=== PATIENT | female | born 1995 | race Caucasian/White ===

== ENCOUNTER 2021-09-15 09:57 | Emergency (ER) | payer MEDICARE, MEDICAID, SELFPAY ==
[2021-09-15 10:03] VITALS: BP 110/57; PULSE 57; RESP 20; TEMP 36.3; O2SAT 100; BMI 29.0
[2021-09-15 10:19] LABS: Hematocrit 37.7 % (37.0-47.0); Hemoglobin 11.6 g/dl (12.0-16.0); Mean Corpuscular HGB Conc 30.8 g/dl (31.0-35.0); Mean Corpuscular Hemoglobin 24.3 pg (27.0-33.0); Mean Platelet Volume 11.5 fL (9.4-12.3); Platelet Count 206 X10*3/uL (160-400); Red Blood Count 4.77 X10*6/uL (4.20-5.50); Red Cell Distribution Width 18.7 % (11.0-16.0)
[2021-09-15 10:28] LABS: Appearance Urine CLEAR; Color Urine YELLOW; Glucose Urine UA NEG (NEG); Leukocyte Esterase Urine 2+ (NEG); Nitrite Urine NEG (NEG); Specific Gravity - Urine 1.025 (1.005-1.025); UACC Culture Trigger YES; Urine Blood TRACE (NEG); Urine Ketones NEG (NEG); Urine Protein NEG (NEG-TRACE)
[2021-09-15 10:30] LABS: UPreg QC Valid YES; Urine Pregnancy NEGATIVE (NEGATIVE)
[2021-09-15 10:31] LABS: WBC ABN SCTR FOR CBC 1
[2021-09-15 10:36] LABS: Alanine Aminotransferase 9 U/L (0-31); Albumin Level 3.8 g/dL (3.5-5.0); Alkaline Phosphatase 67 U/L (39-117); Anion Gap 11 (12-20); Aspartate Amino Transferase 13 U/L (5-31); Bilirubin Total 0.4 mg/dL (0.0-1.0); Blood Urea Nitrogen 12 mg/dL (9-16); Calcium 9.2 mg/dL (8.4-10.2); Carbon Dioxide 26 mmol/L (22-29); Chloride 108 mmol/L (96-108); Creatinine Clr Calc Pharmacy 112.4; Estimated Glomerular Filt Rate > 60; Glucose Random 91 mg/dL (60-115); Lipase 29 U/L (8-78); Potassium 4.6 mmol/L (3.3-5.1); Sodium 140 mmol/L (135-145); Total Protein 6.3 g/dL (6.5-8.0)
--- NOTE | 2021-09-15 10:45 | ED_ITS ---
HPI - Abdominal Pain General Chief Complaint: Abdominal Pain Stated Complaint: abd pain Time Seen by Provider: 09/15/21 10:45 Source: patient Mode of arrival: ambulatory Limitations: no limitations History of Present Illness HPI narrative: 26 years old female came in for evaluation of upper abdominal pain/epigastric pain. Pain started many years ago, pain was described as intermittent comes and goes, mild 6/10 dull aching pain usually localized to the epigastric area with no radiation, no relieving factor, no aggravating factor, food do not change or affect the pain, sometimes the pain is associated with nausea and vomiting. Patient had a normal bowel movement this morning. Sexually active with 1 partner declined risk of STD, no vaginal discharge, no urinary frequency or dysuria. Past Surgical history significant for cholecystectomy, right oophorectomy for ovarian torsion and dermoid cyst, history of ectopic . Patient lost intentional weight loss over past year. Related Data Previous Rx's Medication Instructions Recorded omeprazole magnesium 20 mg 20 mg PO BID 10 Days #20 tab 09/15/21 tablet,delayed release (Prilosec OTC) Allergies Allergy/AdvReac Type Severity Reaction Status Date / Time No Known Allergies Allergy Unverified 04/08/20 19:31 [No Known Allergies*] Review of Systems Review of Systems All other systems are reviewed and are negative Constitutional: Reports as per HPI and Reports no additional constitutional complaints Eyes: Reports as per HPI and Reports no additional eye complaints Reports system reviewed and no additional complaints, except as documented Cardiovascular: Reports as per HPI and Reports no additional cardiovascular complaints Respiratory: Reports as per HPI and Reports no additional respiratory complaints Gastrointestinal: Reports as per HPI and Reports no additional gastrointestinal complaints Genitourinary: Reports no additional female genitourinary complaints Musculoskeletal: Reports no additional musculoskeletal complaints Skin/Breast: Reports system reviewed and no additional complaints, except as docu Psychiatric: Reports no additional psychiatric complaints Endocrine: Reports no additional endocrine complaints Hematologic/Lymphatic: Reports no additional hematologic/lymphatic complaints Allergic/Immunologic: Reports no additional allergic/immunologic complaints Reports system reviewed and no additional complaints, except as documented and Reports Abnormal speech present [facility] Social History Social History Advance Directives: No Advance Directives Information Provided: No Patient : No Physical Exam ED Vital Signs: Vital Signs - 24 hr 09/15/21 10:03 Temperature 97.4 F Pulse Rate 57 Respiratory Rate 20 Blood Pressure 110/57 L Pulse Oximetry 100 BMI result Body Mass Index 29.0 Vital signs have been reviewed as appeared to be correct. Blood pressure normal. Heart rate normal. Respiration rate normal. Temperature normal. Oxygen saturation normal. Appearance: Alert. Oriented X3. No acute distress. Head: Normal external exam. Normocephalic. Atraumatic. No [place] signs noted. No raccoon eyes noted Eyes: PERRLA. EOMI. Conjunctiva and sclera normal. Eyelids normal. ENT: TM's Normal. Pharynx normal. Uvula midline. Moist mucous membranes. No trismus noted. No drooling noted. No muffled voice noted. Neck: Normal inspection. Neck supple. FROM. No adenopathy. Thyroid Normal. No meningeal signs. No neck mass noted. CVS: Normal heart rate and rhythm. Heart sound normal. No murmurs noted. Pulses normal throughout. Respiratory: No respiratory distress. Painless inspiration. Breath sounds normal. No wheezes/rales/rhonchi noted. Chest nontender. No accessory muscle usage noted or decreased air movement noted. Abdomen: Soft, mild epigastric tenderness, no rebound tenderness, no guarding. Bowel sounds normal in all 4 quadrants. No distention noted. No organomegaly noted. No visible injury noted. Back: No CVA tenderness. Full range of motion noted. Skin: Skin warm and dry. Normal skin color. Normal skin turgor. No rashes/lesions/lacerations noted. Extremities: No lower extremity edema. Extremities exhibit normal range of motion. Extremities nontender. Neuro: Oriented X 3. Cranial nerve exam: II-XII are grossly intact No motor deficit. No sensory deficit. Reflexes normal. Course Course Course Narrative: Assessment and plan. 26-year-old female with chronic epigastric pain not food related, status post cholecystectomy, patient has unremarkable labs except for slight leukocytosis cells, exam revealing no acute findings. Patient's symptoms is likely secondary to gastritis. Will start the patient on Prilosec and follow-up with GI as an outpatient. MDM - Abdominal Pain Lab Data Attestation: I reviewed the patient's lab results. Result diagrams: 09/15/21 10:14 09/15/21 10:14 Labs: Lab Results 09/15/21 09/15/21 09/15/21 Range/Units 10:14 10:14 10:21 WBC 14.6 H (4.8-10.8) X10*3/uL RBC 4.77 (4.20-5.50) X10*6/uL Hgb 11.6 L (12.0-16.0) g/dl Hct 37.7 (37.0-47.0) % MCV 79.0 L (80.0-98.0) fL MCH 24.3 L (27.0-33.0) pg MCHC 30.8 L (31.0-35.0) g/dl RDW 18.7 H (11.0-16.0) % Plt Count 206 (160-400) X10*3/uL MPV 11.5 (9.4-12.3) fL Immature Gran % (Auto) Cancelled Neut % (Auto) Cancelled Lymph % (Auto) Cancelled Cloud % (Auto) Cancelled Eos % (Auto) Cancelled Baso % (Auto) Cancelled Lymph # (Auto) Cancelled Cloud # (Auto) Cancelled Eos # (Auto) Cancelled Baso # (Auto) Cancelled Abs Immat Gran (auto) Cancelled Absolute Neuts (auto) Cancelled Absolute Nucleated RBC 0.000 (0.0-0.012) X10*3/uL Nucleated RBC % (auto) 0.0 (0.0-0.2) /100WBC Neutrophils % (Manual) 82 H (45-73) % Band Neutrophils % 4 (3-5) % Lymphocytes % (Manual) 10 L (20-40) % Monocytes % (Manual) 3 (2-11) % Metamyelocytes % 1 % Abs Neuts (Manual) 12.6 H (2.0-8.3) X10*3/uL Lymphocytes # (Manual) 1.5 (1.2-4.9) X10*3/uL Monocytes # (Manual) 0.4 (0.1-1.2) X10*3/uL Metamyelocytes # 0.1 X10*3/uL Platelet Estimate NORMAL (NORMAL) Plt Morphology Comment NORMAL RBC Morphology NOTED Ovalocytes 1+ (5-14) /OIF Sodium 140 (135-145) mmol/L Potassium 4.6 (3.3-5.1) mmol/L Chloride 108 (96-108) mmol/L Carbon Dioxide 26 (22-29) mmol/L Anion Gap 11 L (12-20) BUN 12 (9-16) mg/dL Creatinine 0.83 (0.5-1.4) mg/dL Estim Creat Clear Calc 112.4 Estimated GFR > 60 Random Glucose 91 (60-115) mg/dL Calcium 9.2 (8.4-10.2) mg/dL Total Bilirubin 0.4 (0.0-1.0) mg/dL AST 13 (5-31) U/L ALT 9 (0-31) U/L Alkaline Phosphatase 67 (39-117) U/L Total Protein 6.3 L (6.5-8.0) g/dL Albumin 3.8 (3.5-5.0) g/dL Lipase 29 (8-78) U/L Urine Color YELLOW Urine Appearance CLEAR Urine pH 6.0 (5.0-8.0) Ur Specific [place] 1.025 (1.005-1.025) Urine Protein NEG (NEG-TRACE) MG/DL Urine Glucose (UA) NEG (NEG) MG/DL Urine Ketones NEG (NEG) MG/DL Urine Blood TRACE (NEG) Urine Nitrite NEG (NEG) Ur Leukocyte Esterase 2+ H (NEG) Urine Test (NEGATIVE) 09/15/21 Range/Units 10:21 WBC (4.8-10.8) X10*3/uL RBC (4.20-5.50) X10*6/uL Hgb (12.0-16.0) g/dl Hct (37.0-47.0) % MCV (80.0-98.0) fL MCH (27.0-33.0) pg MCHC (31.0-35.0) g/dl RDW (11.0-16.0) % Plt Count (160-400) X10*3/uL MPV (9.4-12.3) fL Immature Gran % (Auto) Neut % (Auto) Lymph % (Auto) Cloud % (Auto) Eos % (Auto) Baso % (Auto) Lymph # (Auto) Cloud # (Auto) Eos # (Auto) Baso # (Auto) Abs Immat Gran (auto) Absolute Neuts (auto) Absolute Nucleated RBC (0.0-0.012) X10*3/uL Nucleated RBC % (auto) (0.0-0.2) /100WBC Neutrophils % (Manual) (45-73) % Band Neutrophils % (3-5) % Lymphocytes % (Manual) (20-40) % Monocytes % (Manual) (2-11) % Metamyelocytes % % Abs Neuts (Manual) (2.0-8.3) X10*3/uL Lymphocytes # (Manual) (1.2-4.9) X10*3/uL Monocytes # (Manual) (0.1-1.2) X10*3/uL Metamyelocytes # X10*3/uL Platelet Estimate (NORMAL) Plt Morphology Comment RBC Morphology Ovalocytes /OIF Sodium (135-145) mmol/L Potassium (3.3-5.1) mmol/L Chloride (96-108) mmol/L Carbon Dioxide (22-29) mmol/L Anion Gap (12-20) BUN (9-16) mg/dL Creatinine (0.5-1.4) mg/dL Estim Creat Clear Calc Estimated GFR Random Glucose (60-115) mg/dL Calcium (8.4-10.2) mg/dL Total Bilirubin (0.0-1.0) mg/dL AST (5-31) U/L ALT (0-31) U/L Alkaline Phosphatase (39-117) U/L Total Protein (6.5-8.0) g/dL Albumin (3.5-5.0) g/dL Lipase (8-78) U/L Urine Color Urine Appearance Urine pH (5.0-8.0) Ur Specific [place] (1.005-1.025) Urine Protein (NEG-TRACE) MG/DL Urine Glucose (UA) (NEG) MG/DL Urine Ketones (NEG) MG/DL Urine Blood (NEG) Urine Nitrite (NEG) Ur Leukocyte Esterase (NEG) Urine Test NEGATIVE (NEGATIVE) Discharge Plan Discharge Clinical Impression: Abdominal pain, Gastritis Patient Disposition: Home, Self-Care Instructions: Gastritis (ED) Prescriptions: New omeprazole magnesium [Prilosec OTC] 20 mg tablet,delayed release (DR/EC) 20 mg PO BID 10 Days Qty: 20 0RF Referrals: Hari Angeles MD [Physician] - 2 days
[2021-09-15 10:48] LABS: Band Neutrophils Percent 4 % (3-5); Lymphocytes Percent Manual 10 % (20-40); Metamyelocytes Percent 1 %; Monocytes Percent Manual 3 % (2-11); Neutrophils Percent Manual 82 % (45-73)
[2021-09-15 10:49] LABS: RBC Morphology NOTED
[2021-09-15 10:50] LABS: Ovalocytes 1+ (5-14) /OIF
[2021-09-15 10:51] LABS: Platelet Estimate NORMAL (NORMAL); Platelet Morphology Comment NORMAL
[2021-09-15 10:55] LABS: Lymphocytes Absolute Manual 1.5 X10*3/uL (1.2-4.9); Metamyelocytes Absolute 0.1 X10*3/uL; Monocytes Absolute Manual 0.4 X10*3/uL (0.1-1.2); Neutrophils Absolute Manual 12.6 X10*3/uL (2.0-8.3); White Blood Count 14.6 X10*3/uL (4.8-10.8)
[2021-09-15 10:58] LABS: RBC Urine 0-2 /HPF (0); Squamous Epithelial Cell Urine 1+ /LPF
[2021-09-15 10:59] LABS: Mucus Urine 1+ /LPF
== END 2021-09-15 11:35 | disposition home or self-care (01) ==
PROVIDERS: Emergency Provider Emergency Medicine
DX: K29.70 Gastritis, unspecified, without bleeding (principal); R10.13 Epigastric pain
CPT/HCPCS: 36415; 80053; 81001; 81025; 83690; 85007; 85027; 87086; 87147; 99283

== ENCOUNTER 2022-01-11 16:23 | Emergency (ER) | payer MEDICARE, MEDICAID, SELFPAY ==
[2022-01-11 16:30] VITALS: BP 120/76; PULSE 66; RESP 18; TEMP 36; O2SAT 100; BMI 27.4
--- NOTE | 2022-01-11 17:00 | ED_ITS ---
HPI - Skin/Abscess/Foreign Bdy General Chief complaint: Skin/Abscess/Foreign Body Stated complaint: left thigh abcess painful Time Seen by Provider: 01/11/22 16:45 Source: patient Mode of arrival: ambulatory Limitations: no limitations History of Present Illness HPI narrative: 26-year-old female here with reports of redness, swelling to the left inner thigh since Sunday. No fevers or chills Related Data Previous Rx's Medication Instructions Recorded omeprazole magnesium 20 mg 20 mg PO BID 10 days #20 tabs 09/15/21 tablet,delayed release (Prilosec OTC) doxycycline monohydrate 100 mg 100 mg PO BID #14 tabs 01/11/22 tablet Allergies Allergy/AdvReac Type Severity Reaction Status Date / Time No Known Allergies Allergy Unverified 04/08/20 19:31 [No Known Allergies*] Review of Systems Review of Systems: Yes all other systems are reviewed and are negative Constitutional: Constitutional: Reports no additional constitutional complaints, Denies body ache(s), Denies chills, Denies fever(s), Denies headache(s) and Denies weakness Eyes: Eyes: Reports no additional eye complaints and Denies change in vision ENT: Reports system reviewed and no additional complaints, except as documented, Denies dizziness, Denies headache(s), Denies nasal congestion, Denies nasal discharge and Denies neck pain Cardiovascular: Cardiovascular: Reports no additional cardiovascular complaints, Denies chest pain, Denies leg edema and Denies dyspnea Respiratory: Respiratory: Reports no additional respiratory complaints, Denies cough and Denies dyspnea Gastrointestinal: Gastrointestinal: Reports no additional gastrointestinal complaints, Denies abdominal pain, Denies diarrhea, Denies nausea and Denies vomiting Genitourinary: Genitourinary: Reports no additional female genitourinary complaints and Denies urinary incontinence Musculoskeletal: Musculoskeletal: Reports no additional musculoskeletal complaints, Denies back pain, Denies arthralgias, Denies joint swelling, Denies neck pain, Denies numbness and Denies tingling Integumentary/Breasts: Skin/Breast: Reports system reviewed and no additional complaints, except as docu, Reports swelling, Reports erythema and Denies rash Neurologic: Reports system reviewed and no additional complaints, except as documented, Denies Abnormal speech present, Denies dizziness, Denies headache(s), Denies numbness, Denies tingling and Denies weakness PMFSH Past Medical History Attestation statement: The following information was validated with the patient. Source: old records reviewed and nursing notes reviewed Social History Social History Advance Directives: No Advance Directives Information Provided: No Physical Exam Vital Signs: Vital Signs: Last Vital Signs Temp 96.8 F 01/11/22 16:30 Pulse 66 01/11/22 16:30 Resp 18 01/11/22 16:30 BP 120/76 01/11/22 16:30 Pulse Ox 100 01/11/22 16:30 O2 Del Method 01/11/22 16:30 BMI result Body Mass Index 27.4 Const: General: cooperative, healthy appearing, comfortable and no acute distress Orientation/consciousness: patient oriented x3 Limitations: no limitations HEENT: Head: Yes normal to inspection Ears: hearing grossly normal bilaterally General nose exam: Normal external nose present Face and sinus: Yes normal facial exam Mouth: Normal oral and palatal mucosa present Throat: Yes posterior oropharynx normal Eyes: General: appearance normal, both eyes and all related structures Pupils: Equal, round and reactive pupils present Neck: Neck: Yes normal visual inspection Chest: Chest palpation & inspection: normal inspection of the chest Resp: Effort & Inspection: normal respiratory effort Auscultation: clear to auscultation bilaterally Cardio: Rate: regular rate Rhythm: regular rhythm Peripheral pulses: Peripheral pulses 2+ throughout GI: Inspection: Yes normal to inspection Palpation (GI): Soft to palpation and nontender Auscultation: normal bowel sounds Back/Spine/Pelvis: Thoracic/Lumbar Spine: thoracic and lumbar spine normal to inspection Skin: General skin exam: no rashes or lesions noted Neuro: General: patient oriented x3, no focal motor deficits and normal sensation to monofilament Cranial nerves: Yes Equal, round and reactive pupils present Cognition (Neuro): normal cognition Speech: No Abnormal speech present Gait exam (Neuro): Normal gait present Motor exam (neuro): 5/5 motor strength present throughout Extrem: Other: The left inner thigh there is an area of redness, tenderness and warmth. There is no fluctuance or induration. General: Yes normal to inspection Course Course Course Narrative: Reviewed worrisome symptoms of when to return to the emergency department. Comfortable discharge home. MDM - Skin/Abscess/Foreign Bdy MDM Narrative Medical decision making narrative: 26-year-old female here with abscess left inner thigh. There is no induration or fluctuance that would be conducive to incision and drainage. Therefore I recommend the patient go home and do warm compresses and sore oral antibiotics. Medical Records Attestation: I reviewed the patient's medical records. Lab Data Attestation: I reviewed the patient's lab results. Discharge Plan Discharge Clinical Impression: Abscess of skin or subcutaneous tissue Patient Disposition: Home, Self-Care Instructions: Abscess (ED) Additional Instructions: Warm soaks 4 times daily Motrin or Tylenol for pain Prescriptions: New doxycycline monohydrate 100 mg tablet 100 mg PO BID Qty: 14 0RF No Action omeprazole magnesium [Prilosec OTC] 20 mg tablet,delayed release (DR/EC) 20 mg PO BID 10 Days Qty: 20 0RF Referrals: [facility] [Primary Care Provider] - Stand Alone Forms: Work/School Release Interventions: ED Discharge Assessment Last Done: 01/11/22 17:10 Discharge Date/Time: 01/11/22 17:10
== END 2022-01-11 17:10 | disposition home or self-care (01) ==
PROVIDERS: Emergency Provider Emergency Medicine
DX: L02.416 Cutaneous abscess of left lower limb (principal); Z79.899 Other long term (current) drug therapy
CPT/HCPCS: 99283

== ENCOUNTER 2022-08-29 13:25 | Emergency (ER) | payer MEDICARE, SELFPAY ==
--- NOTE | 2022-08-29 13:28 | ED_ITS ---
HPI - Abdominal Pain General Chief Complaint: General Medical <Tayler Bro CNP - Last Filed: 08/29/22 13:35> Stated Complaint: pt sts needs abd drained <Tayler Bro CNP - Last Filed: 08/29/22 13:35> Time Seen by Provider: 08/29/22 14:58 <Tayler Bro CNP - Last Filed: 08/29/22 13:35> Source: patient <Niyah Carias NP - Last Filed: 08/29/22 16:34> Mode of arrival: ambulatory <Niyah Carias NP - Last Filed: 08/29/22 16:34> Limitations: no limitations <Niyah Carias NP - Last Filed: 08/29/22 16:34> History of Present Illness HPI narrative: 26-year-old female who is healthy who presents to the ER seeking LORIN drain removed from her abdomen. Patient reports on August 10 she had a tummy tuck, liposuction and fat transfer (BBL). she had bilateral LORIN drains place. she followed up with the surgeon August 17 and had the left drain removed. She was still having some drainage the right so it was left in place. Patient was told that she can remove the LORIN drain by herself on August 24 it or go to the emergency room to have it removed. Patient reports she was in his sleep putting out greater than 250 cc in a 24 hour. She is now putting out about 20 cc per 24 hours >1 week. She reports some mild redness around the surgical incision sites but no pain, fever. <Niyah Carias NP - Last Filed: 08/29/22 16:34> Related Data Home Medications: Previous Rx's Medication Instructions Recorded omeprazole magnesium 20 mg 20 mg PO BID 10 days #20 tabs 09/15/21 tablet,delayed release (Prilosec OTC) doxycycline monohydrate 100 mg 100 mg PO BID #14 tabs 01/11/22 tablet <Tayler Bro CNP - Last Filed: 08/29/22 13:35> Allergies/Adverse Reactions: Allergies Allergy/AdvReac Type Severity Reaction Status Date / Time No Known Allergies Allergy Unverified 04/08/20 19:31 [No Known Allergies*] <Tayler Bro, CREPING MACHINE OPERATOR - Last Filed: 08/29/22 13:35> Review of Systems Review of Systems Yes all other systems are reviewed and are negative <Niyah Carias NP - Last Filed: 08/29/22 16:34> Constitutional: Reports no additional constitutional complaints, Denies body ache(s), Denies chills, Denies fever(s), Denies headache(s) and Denies weakness <Niyah Carias HEAT AND FROST INSULATOR HELPER - Last Filed: 08/29/22 16:34> Eyes: Reports no additional eye complaints and Denies change in vision <Niyah Carias NP - Last Filed: 08/29/22 16:34> Reports system reviewed and no additional complaints, except as documented, Denies dizziness, Denies headache(s), Denies nasal congestion, Denies nasal discharge and Denies neck pain <Niyah Carias NP - Last Filed: 08/29/22 16:34> Cardiovascular: Reports no additional cardiovascular complaints, Denies chest pain, Denies leg edema and Denies dyspnea <Niyah Carias HEAT AND FROST INSULATOR HELPER - Last Filed: 08/29/22 16:34> Respiratory: Reports no additional respiratory complaints, Denies cough and Denies dyspnea <Niyah Carias NP - Last Filed: 08/29/22 16:34> Gastrointestinal: Reports no additional gastrointestinal complaints, Denies abdominal pain, Denies diarrhea, Denies nausea and Denies vomiting <Niyah Carias NP - Last Filed: 08/29/22 16:34> Genitourinary: Reports no additional female genitourinary complaints and Denies urinary incontinence <Niyah Carias HEAT AND FROST INSULATOR HELPER - Last Filed: 08/29/22 16:34> Musculoskeletal: Reports no additional musculoskeletal complaints, Denies back pain, Denies arthralgias, Denies joint swelling, Denies neck pain, Denies numbness and Denies tingling <Niyah Carias HEAT AND FROST INSULATOR HELPER - Last Filed: 08/29/22 16:34> Skin/Breast: Reports system reviewed and no additional complaints, except as docu and Denies rash <Niyah Carias NP - Last Filed: 08/29/22 16:34> Reports system reviewed and no additional complaints, except as documented, Denies dizziness, Denies headache(s), Denies numbness, Denies tingling and Denies weakness <Niyah Carias NP - Last Filed: 08/29/22 16:34> [facility] Past Medical History Attestation statement: The following information was validated with the patient. <Niyah Carias NP - Last Filed: 08/29/22 16:34> Source: old records reviewed and nursing notes reviewed <Niyah Carias NP - Last Filed: 08/29/22 16:34> Social History Social History: Social History Advance Directives: No <Tayler Bro CNP - Last Filed: 08/29/22 13:35> Physical Exam ED Vital Signs: Vital Signs - 24 hr 08/29/22 13:30 Temperature 97.7 F Pulse Rate 110 H Respiratory Rate 18 Blood Pressure 132/79 Pulse Oximetry 100 Oxygen Delivery Method Room Air BMI result Body Mass Index 29.4 <Tayler Bro CNP - Last Filed: 08/29/22 13:35> Vital Signs - 24 hr 08/29/22 13:30 Temperature 97.7 F Pulse Rate 110 H Respiratory Rate 18 Blood Pressure 132/79 Pulse Oximetry 100 Oxygen Delivery Method Room Air BMI result Body Mass Index 29.4 <Niyah Carias NP - Last Filed: 08/29/22 16:34> Const General: cooperative, healthy appearing and comfortable <Niyah Carias NP - Last Filed: 08/29/22 16:34> Orientation/consciousness: patient oriented x3 <Niyah Carias NP - Last Filed: 08/29/22 16:34> Limitations: no limitations <Niyah Carias NP - Last Filed: 08/29/22 16:34> HENMT Head: Yes normal to inspection <Niyah Carias NP - Last Filed: 08/29/22 16:34> Ears: hearing grossly normal bilaterally <Niyah Carias NP - Last Filed: 08/29/22 16:34> Eyes General: appearance normal, both eyes and all related structures <Niyah Carias HEAT AND FROST INSULATOR HELPER - Last Filed: 08/29/22 16:34> Pupils: Equal, round and reactive pupils present <Niyah Carias HEAT AND FROST INSULATOR HELPER - Last Filed: 08/29/22 16:34> GI Other: <Niyah Carias HEAT AND FROST INSULATOR HELPER - Last Filed: 08/29/22 16:34> Inspection: Yes normal to inspection <Niyah Carias HEAT AND FROST INSULATOR HELPER - Last Filed: 08/29/22 16: 34> Palpation (GI): Soft to palpation and nontender <Niyah Carias HEAT AND FROST INSULATOR HELPER - Last Filed: 08/29/22 16:34> Neuro General: patient oriented x3 and moves all extremities <Niyah Carias HEAT AND FROST INSULATOR HELPER - Last Filed: 08/29/22 16:34> Cranial nerves: Yes Equal, round and reactive pupils present <Niyah Carias HEAT AND FROST INSULATOR HELPER - Last Filed: 08/29/22 16:34> Cognition (Neuro): normal cognition <Niyah Carias HEAT AND FROST INSULATOR HELPER - Last Filed: 08/29/22 16:34> Gait exam (Neuro): Normal gait present <Niyah Carias HEAT AND FROST INSULATOR HELPER - Last Filed: 08/29/22 16:34> Procedures Procedure Narrative Procedure Narrative: Procedure by Dr. Jade - LORIN drain was removed from the right lower abdomen. the suture was cut and the drain was gently removed with traction with no Suction. there was slight serous fluid after removal noted. The site was cleansed and ABD pad was placed <Niyah Carias HEAT AND FROST INSULATOR HELPER - Last Filed: 08/29/22 16:34> Course Course Course Narrative: This is an RME: Additional HPI, ROS, PE not included below will be deferred to primary provider. Patient is a 26-year-old female who presents to the emergency department. 08/10/2022 underwent reports panniculectomy surgery in [place], was told to come to an emergency department to have the LORIN drain removed. She states it is still currently draining, and there is drainage leaking around the insertion site she thinks it may be starting to get infected. Plan: labs <Tayler Bro CNP - Last Filed: 08/29/22 13:35> Medical Decision Making Medical Decision Making [facility] Narrative: this is a 26-year-old female who is postop day 19 from a tummy tuck, liposuction and fat transfer to be [facility] who presents seeking to have her LORIN drain removed from the right lower abdomen. patient reports that she had her procedure in [place] and had the left drain removed on August 17 prior to her departure. the right LORIN drain was still draining on the and so was left in place with recommendations for the patient to remove it on August 24 on her own. Patient did not feel comfortable with this and so she brought herself to the ER. She reports <20cc of drainage daily >7 days. No abdominal pain, fever or any other complaints. on exam surgical site appears noninfected. LORIN drain has less than 5 cc patient with no surgical follow-up in [place]. will discuss with General surgery on-call <Niyah Carias NP - Last Filed: 08/29/22 16:34> Differential Diagnosis Differential Diagnoses: The differential diagnosis associated with the presentation includes <Niyah Carias NP - Last Filed: 08/29/22 16:34> lorin drain removal <Niyah Carias NP - Last Filed: 08/29/22 16:34> Consult Healthcare Provider Management of the patient was discussed with: Shank Breaker <Niyah Carias NP - Last Filed: 08/29/22 16:34> discussed with general surgery Dr. Garrett- recommended removal of drain at the bedside- see procedure note <Niyah Carias NP - Last Filed: 08/29/22 16:34> Lab Data [facility] Lab Attestation statement: I reviewed the patient's lab results. <Niyah Carias NP - Last Filed: 08/29/22 16:34> Result Diagrams: 08/29/22 14:04 08/29/22 14:04 <Tayler Bro CNP - Last Filed: 08/29/22 13:35> Labs: Lab Results 08/29/22 08/29/22 Range/Units 14:04 14:04 WBC 10.9 H (4.8-10.8) X10*3/uL RBC 4.07 L (4.20-5.50) X10*6/uL Hgb 10.6 L (12.0-16.0) g/dl Hct 34.3 L (37.0-47.0) % MCV 84.3 (80.0-98.0) fL MCH 26.0 L (27.0-33.0) pg MCHC 30.9 L (31.0-35.0) g/dl RDW 15.9 (11.0-16.0) % Plt Count 342 D (160-400) X10*3/uL MPV 10.9 (9.4-12.3) fL Immature Gran % (Auto) 0.4 (0.0-0.4) % Neut % (Auto) 70.5 (45-73) % Lymph % (Auto) 16.2 L (20-40) % Bacon % (Auto) 10.5 (2-11) % Eos % (Auto) 1.9 (0-4) % Baso % (Auto) 0.5 (0-2) % Lymph # (Auto) 1.8 (1.2-4.9) X10*3/uL Bacon # (Auto) 1.2 (0.1-1.2) X10*3/uL Eos # (Auto) 0.2 (0.0-0.4) X10*3/uL Baso # (Auto) 0.1 (0.0-0.2) X10*3/uL Abs Immat Gran (auto) 0.04 H (0.00-0.03) X10*3/uL Absolute Neuts (auto) 7.7 (2.0-8.3) x10*3/uL Absolute Nucleated RBC 0.000 (0.0-0.012) X10*3/uL Nucleated RBC % (auto) 0.0 (0.0-0.2) /100WBC Sodium 140 (135-145) mmol/L Potassium 4.6 (3.3-5.1) mmol/L Chloride 104 (96-108) mmol/L Carbon Dioxide 28 (22-29) mmol/L Anion Gap 13 (12-20) BUN 12 (9-16) mg/dL Creatinine 0.74 (0.5-1.4) mg/dL Estim Creat Clear Calc 126.9 Estimated GFR > 60 Random Glucose 89 (60-115) mg/dL Calcium 9.1 (8.4-10.2) mg/dL Total Bilirubin 0.3 (0.0-1.0) mg/dL AST 66 H (5-31) U/L ALT 117 H (0-31) U/L Alkaline Phosphatase 145 H (39-117) U/L Total Protein 6.2 L (6.5-8.0) g/dL Albumin 3.4 L (3.5-5.0) g/dL Lipase 14 (8-78) U/L <Tayler Bro, CREPING MACHINE OPERATOR - Last Filed: 08/29/22 13:35> Lab Results 08/29/22 08/29/22 Range/Units 14:04 14:04 WBC 10.9 H (4.8-10.8) X10*3/uL RBC 4.07 L (4.20-5.50) X10*6/uL Hgb 10.6 L (12.0-16.0) g/dl Hct 34.3 L (37.0-47.0) % MCV 84.3 (80.0-98.0) fL MCH 26.0 L (27.0-33.0) pg MCHC 30.9 L (31.0-35.0) g/dl RDW 15.9 (11.0-16.0) % Plt Count 342 D (160-400) X10*3/uL MPV 10.9 (9.4-12.3) fL Immature Gran % (Auto) 0.4 (0.0-0.4) % Neut % (Auto) 70.5 (45-73) % Lymph % (Auto) 16.2 L (20-40) % Bacon % (Auto) 10.5 (2-11) % Eos % (Auto) 1.9 (0-4) % Baso % (Auto) 0.5 (0-2) % Lymph # (Auto) 1.8 (1.2-4.9) X10*3/uL Bacon # (Auto) 1.2 (0.1-1.2) X10*3/uL Eos # (Auto) 0.2 (0.0-0.4) X10*3/uL Baso # (Auto) 0.1 (0.0-0.2) X10*3/uL Abs Immat Gran (auto) 0.04 H (0.00-0.03) X10*3/uL Absolute Neuts (auto) 7.7 (2.0-8.3) x10*3/uL Absolute Nucleated RBC 0.000 (0.0-0.012) X10*3/uL Nucleated RBC % (auto) 0.0 (0.0-0.2) /100WBC Sodium 140 (135-145) mmol/L Potassium 4.6 (3.3-5.1) mmol/L Chloride 104 (96-108) mmol/L Carbon Dioxide 28 (22-29) mmol/L Anion Gap 13 (12-20) BUN 12 (9-16) mg/dL Creatinine 0.74 (0.5-1.4) mg/dL Estim Creat Clear Calc 126.9 Estimated GFR > 60 Random Glucose 89 (60-115) mg/dL Calcium 9.1 (8.4-10.2) mg/dL Total Bilirubin 0.3 (0.0-1.0) mg/dL AST 66 H (5-31) U/L ALT 117 H (0-31) U/L Alkaline Phosphatase 145 H (39-117) U/L Total Protein 6.2 L (6.5-8.0) g/dL Albumin 3.4 L (3.5-5.0) g/dL Lipase 14 (8-78) U/L <Niyah Carias NP - Last Filed: 08/29/22 16:34> Discharge Plan Discharge Clinical Impression: Visit for wound check <Tayler Bro CNP - Last Filed: 08/29/22 13:35> Patient Disposition: Home, Self-Care <Tayler Bro CNP - Last Filed: 08/29/22 13:35> Instructions: Wound Healing and Your Diet (ED) <Tayler Bro CNP - Last Filed: 08/29/22 13:35> Prescriptions: No Action omeprazole magnesium [Prilosec OTC] 20 mg tablet,delayed release (DR/EC) 20 mg PO BID 10 Days Qty: 20 0RF doxycycline monohydrate 100 mg tablet 100 mg PO BID Qty: 14 0RF <Tayler Bro CNP - Last Filed: 08/29/22 13:35> Interventions: ED Discharge Assessment Last Done: 08/29/22 16:04 <Tayler Bro CNP - Last Filed: 08/29/22 13:35> Discharge Date/Time: 08/29/22 16:04 <Tayler Bro CNP - Last Filed: 08/29/22 13:35>
[2022-08-29 13:30] VITALS: BP 132/79; PULSE 110; RESP 18; TEMP 36.5; O2SAT 100; BMI 29.4
[2022-08-29 14:20] LABS: MANUAL DIFF FLAG NO
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
--- OUTSIDE RECORDS SUMMARY | 2022-08-29 14:20 | XMS_ITS | Continuity of Care Document ---
:1995 Author Organization [facility] Address [address] [place] [id number]- Care Team Providers Name Role Phone Not on Staff, PCP Primary Care Physician Unavailable Encounter [facility] Date(s): 07/26/21 - 08/25/[address] [address]- Allergies, Adverse Reactions, Alerts No Known Allergies Immunizations Given and Recorded Vaccine Date Status Refusal Reason tetanus/diphtheria/pertussis, acel(Tdap) 01/05/20 Given tetanus/diphtheria/pertussis, acel(Tdap) 12/27/18 Given Influenza Virus Vaccine (oldterm) 06/19/17 Recorded Medications fluconazole 150 mg oral tablet 1 tablet = 150 mg, By Mouth, Once, # 1 tablet, 0 Refills, Soft Stop, 06/08/21 9:51:00 EST, Tablet, [id number], Partial fill upon patient request if the prescription is for a schedule II opioid drug., 172.72, cm, 06/03/21 16:20:00 EST, Height,... Start Date: 06/08/21 Status: Ordered Problem List Condition Effective Dates Status Health Status Informant Dermoid cyst of both Active ovaries(Confirmed) Chronic bipolar disorder(Confirmed) Active GARTH I (cervical intraepithelial Active neoplasia I)(Confirmed) Obesity(Confirmed) Active Tobacco use(Confirmed) Active Social History Social History Type Response Tobacco Use: 4 or less cigarettes(le ss than 1/4 pack)/day in last 30 days. Other: quit yesterday. Sex
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
--- OUTSIDE RECORDS SUMMARY | 2022-08-29 14:20 | XMS_ITS | Continuity of Care Document ---
:1995 Author Organization [facility] Address [address] [place] [address]- Care Team Providers Name Role Phone Not on Staff, PCP Primary Care Physician Unavailable Encounter [facility] [place] [facility] Date(s): 08/30/20 - 09/29/[address] [address]- Allergies, Adverse Reactions, Alerts Substance Reaction Severity Status NKA Active Immunizations Given and Recorded Vaccine Date Status Refusal Reason tetanus/diphtheria/pertussis, acel(Tdap) 01/05/20 Given tetanus/diphtheria/pertussis, acel(Tdap) 12/27/18 Given Influenza Virus Vaccine (oldterm) 06/19/17 Recorded Medications Apri 0.15 mg-0.03 mg oral tablet 1 tablet, By Mouth, Daily, # 28 tablet, 6 Refills, Maintenance, 08/27/20 18:44:00 EST, Tablet, [facility] #[id number], Partial fill upon patient request if the prescription is for a schedule II opioid drug., 1 tablet By Mouth Daily, 172.72, cm, 08/27/20 6... Start Date: 08/27/20 Status: Orderedfluconazole 150 mg oral tablet 1 tablet = 150 mg, By Mouth, Once, Take second dose if no symptom improvement in 72 hrs, # 2 tablet,0 Refills, Soft Stop, 09/13/20 17:06:00 EST, [id number], Partial fill upon patient request if the prescription is for a schedule II opioid susanna... Start Date: 09/13/20 Status: Orderedgabapentin 100 mg oral capsule 100 mg, 1, capsule, By Mouth, 3 times a day, # 60 capsule, Refills 0, Tot. Refills 0, Maintenance, 09/13/20 17:05:00 EST, Route to Pharmacy Electronically, [id number], Partial fill upon patientrequest if the prescription is for a schedule II... Start Date: 09/13/20 Status: Orderedibuprofen 600 mg oral tablet 600 mg, 1, tablet, By Mouth, Every 6 hours, PRN, # 30 tablet, Refills 0, Tot. Refills 0, Maintenance, Pain , Moderate, 09/13/20 17:04:00 EST, Route to Pharmacy Electronically, [id number], Partial fill upon patient request if the prescription i... Start Date: 09/13/20 Status: Orderedibuprofen 800 mg oral tablet 800 mg, 1, tablet, By Mouth, Every 8 hours, # 60 tablet, Refills 0, Tot. Refills 0, Maintenance, 08/27/20 12:00:00 EST, Route to Pharmacy Electronically, [id number], Partial fill upon patient request if the prescription is for a schedule II op... Start Date: 08/27/20 Status: OrderedTylenol 325 mg oral capsule 2 capsule = 650 mg, By Mouth, Every 6 hours, # 60 capsule, 0 Refills, Maintenance, 08/27/20 12:00:00EST, [id number], Partial fill upon patient request if the prescription is for a schedule II opioid drug., 172.72, cm, 08/27/20 6:32:00 EST, He... Start Date: 08/27/20 Status: OrderedTylenol 325 mg oral tablet 650 mg, 2, tablet, By Mouth, Every 6 hours, PRN, # 30 tablet, Refills 0, Tot. Refills 0, Maintenance, Pain , Moderate, 09/13/20 17:04:00 EST, Route to Pharmacy Electronically, [id number], Partial fill upon patient request if the prescription i... Start Date: 09/13/20 Status: Ordered Problem List Condition Effective Dates Status Health Status Informant Dermoid cyst of both Active ovaries(Confirmed) Chronic bipolar disorder(Confirmed) Active GARTH I (cervical intraepithelial Active neoplasia I)(Confirmed) History of Active hemorrhage(Confirmed) Obesity(Confirmed) Active Tobacco use(Confirmed) Active Social History Social History Type Response Tobacco Use: 4 or less cigarettes(le ss than 1/4 pack)/day in last 30 days. Other: quit yesterday. Sex
--- OUTSIDE RECORDS SUMMARY | 2022-08-29 14:20 | XMS_ITS | Continuity of Care Document ---
:1995 Author Organization [facility] Address [address] [place] [address]- Care Team Providers Name Role Phone Not on Staff, PCP Primary Care Physician Unavailable Encounter [facility] Date(s): 07/30/20 - 07/30/[address] [address]- Discharge Disposition: Transferred to [facility]-term general hospit Attending Physician: Nick Capellan MD Admitting Physician: Nick Capellan MD Referring Physician: Not on Staff, Referring MD Allergies, Adverse Reactions, Alerts Substance Reaction Severity Status NKA Active Immunizations Given and Recorded Vaccine Date Status Refusal Reason tetanus/diphtheria/pertussis, acel(Tdap) 01/05/20 Given tetanus/diphtheria/pertussis, acel(Tdap) 12/27/18 Given Influenza Virus Vaccine (oldterm) 06/19/17 Recorded Medications acetaminophen 325 mg oral tablet 650 mg, By Mouth, Every 4 hours, not to exceed 4000 mg/day, # 90 tablet, Refills 1, Tot. Refills 1, Maintenance, 03/28/20 5:29:00 EDT, Route to Pharmacy Electronically, [facility]/pharmacy #[id number], 173, cm, 03/28/20 0:13:00 EDT, Height, 112.3, kg, 03/25/20 10:... Start Date: 03/28/20 Status: Orderedaspirin 81 mg oral delayed release tablet 1 tablet = 81 mg, By Mouth, Daily, # 90 tablet, 2 Refills, Maintenance, 01/05/20 13:40:00 EDT, CR Tablet, [facility]/pharmacy #[id number], 173, cm, 01/05/20 13:13:00 EDT, Height, 100.7, kg, 09/30/19 14:47:00 EDT, Dry Weight Start Date: 01/05/20 Status: OrderedBP Monitoring Unit BP Monitoring Unit, See Instructions, # 1 each, Refills 0, Tot. Refills 0, Maintenance, Notify Provider if BPs >160/>110, 02/04/20 11:29:00 EDT, Supply, 173, cm, 02/03/20 12:54:00 EDT, Height, 100.7, kg, 09/30/19 14:47:00 EDT, Dry Weight Start Date: 02/04/20 Status: Ordereddocusate sodium 100 mg oral capsule 1 capsule = 100 mg, By Mouth, 2 times a day, # 60 capsule, 0 Refills, Maintenance, 03/28/20 5:29:00 EDT, Capsule, [facility]/pharmacy #[id number], 173, cm, 03/28/20 0:13:00 EDT, Height, 112.3, kg, 03/25/20 10:31:00EDT, Dry Weight Start Date: 03/28/20 Status: Orderedibuprofen 800 mg oral tablet 800 mg, 1, tablet, By Mouth, Every 8 hours, not to exceed 3200 mg/day with food or milk, # 30 tablet, Refills 1, Tot. Refills 1, Maintenance, 03/29/20 12:03:00 EDT, Route to Pharmacy Electronically, [facility]/pharmacy #[id number], Please only fill either this rx... Start Date: 03/29/20 Status: Orderedibuprofen 800 mg oral tablet 800 mg, 1, tablet, By Mouth, Every 8 hours, not to exceed 3200 mg/day with food or milk, # 90 tablet, Refills 1, Tot. Refills 1, Maintenance, 03/28/20 5:29:00 EDT, Route to Pharmacy Electronically, [facility]/pharmacy #[id number], 173, cm, 03/28/20 0:13:00 EDT, H... Start Date: 03/28/20 Status: OrderedMorPHINE Inj 4 mg, Injection, IV Push Slowly, Once, STAT, 07/30/20 18:46:00 EST, Stop date 07/30/20 18:46:00 EST Start Date: 07/30/20 Stop Date: 07/30/20 Status: CompletedPrenatal Multivitamins with Folic Acid 1 mg oral tablet 1 tablet, By Mouth, Daily, Can be substituted by any PNV covered by her insurance; Take one tablet daily, # 90 tablet, 2 Refills, Maintenance, 11/13/19 14:52:00 EDT, Tablet, [facility]/pharmacy #[id number], 1 tablet By Mouth Daily,Instr:Can be substituted by any P... Start Date: 11/13/19 Status: Orderedsimethicone 80 mg oral tablet, chewable 80 mg, Chew, 3 times a day, PRN, # 90 tablet, Refills 1, Tot. Refills 1, Maintenance, Gas, 03/28/20 5:30:00 EDT, Route to Pharmacy Electronically, [facility]/pharmacy #[id number], 173, cm, 03/28/20 0:13:00 EDT, Height, 112.3, kg, 03/25/20 10:31:00 EDT, Dry Weight Start Date: 03/28/20 Status: Ordered Problem List Condition Effective Dates Status Health Status Informant Anemia in (Confirmed) Active Dermoid cyst of both Active ovaries(Confirmed) Chronic bipolar disorder(Confirmed) Active Cardiac condition affecting , Active antepartum(Confirmed) GARTH I (cervical intraepithelial Active neoplasia I)(Confirmed) False labor(Confirmed) Active echogenic bowel(Confirmed) Active History of delivery, currently Active in second trimester(Confirmed) Trisomy 18 in child of prior Active , currently (Confirmed) History of Active hemorrhage(Confirmed) Obesity in (Confirmed) Active Chronic hypertension in Active (Confirmed) Request for sterilization(Confirmed) Active Tobacco use(Confirmed) Active Uterine scar from previous surgery Active affecting (Confirmed) Vital Signs Most recent to oldest [Reference 1 2 3 Range]: Height 173 cm 173 cm (07/30/20 9:20 PM) (07/30/20 5:00 PM) Weight 113 kg 113 kg (07/30/20 9:20 PM) (07/30/20 5:00 PM) Oxygen Saturation [94-100 %] 95 % 100 % 99 % (07/30/20 9:20 PM) (07/30/20 7:24 PM) (07/30/20 6:45 P M) Pulse Rate [55-90 bpm] 50 bpm 45 bpm 40 bpm *L* *L* *L* (07/30/20 9:20 PM) (07/30/20 7:24 PM) (07/30/20 6:45 P M) Body Mass Index [18.5-24.99] 37.76 *>HHI* (07/30/20 9:20 PM) Blood Pressure [90-138/55-84 mm 148/84 mm Hg 138/88 mm Hg 142/92 mm Hg Hg] *H* (07/30/20 7:24 PM) *H* (07/30/20 9:20 PM) (07/30/20 6:45 PM ) Respiratory Rate [16-30 br/min] 16 br/min 18 br/min 16 br/min (07/30/20 9:20 PM) (07/30/20 7:25 PM) (07/30/20 7:24 P M) Temperature [96.8-100.4 DegF] 98.2 DegF 96.4 DegF 96 .6 DegF (07/30/20 9:20 PM) *L* *L* (07/30/20 6:45 PM) (07/30/20 4:49 PM ) Mode of Delivery (Oxygen) Room air Room air Room a ir (07/30/20 9:20 PM) (07/30/20 7:24 PM) (07/30/20 6:45 P M) Blood pressure sites Arm, left Arm, left Arm, left (07/30/20 9:20 PM) (07/30/20 7:24 PM) (07/30/20 6:45 P M) Temperature Route Oral Temporal Oral (07/30/20 9:20 PM) (07/30/20 6:45 PM) (07/30/20 4:49 P M) Dry Weight 113 kg 113 kg (07/30/20 9:20 PM) (07/30/20 5:00 PM) Social History Social History Type Response Tobacco Use: 4 or less cigarettes(le ss than 1/4 pack)/day in last 30 days. Other: quit yesterday. Sex
--- OUTSIDE RECORDS SUMMARY | 2022-08-29 14:20 | XMS_ITS | Continuity of Care Document ---
:1995 Author Organization [facility] Address [address] [place] [phone]- Care Team Providers Name Role Phone Not on Staff, PCP Primary Care Physician Unavailable Encounter [facility] [place] Date(s): 05/10/20 - 08/12/[address] [address]- Attending Physician: Not on Staff, Attending MD Referring Physician: Anita Romero MD Allergies, Adverse Reactions, Alerts Substance Reaction [...] 03/28/20 5:29:00 EDT, Route to Pharmacy Electronically, [facility]/pharmacy #[id number], 173, cm, 03/28/20 0:13:00 EDT, Height, 112.3, kg, 03/25/20 10:... Start Date: 03/28/20 Status: Orderedaspirin 81 mg oral delayed release tablet 1 tablet = 81 mg, By Mouth, Daily, # 90 tablet, 2 Refills, Maintenance, 01/05/20 13:40:00 EDT, CR Tablet, [facility]/pharmacy #[id number], 173, cm, 01/05/20 13:13:00 EDT, [...] 0 Refills, Maintenance, 03/28/20 5:29:00 EDT, Capsule, [facility]/pharmacy #[id number], 173, cm, 03/28/20 0:13:00 EDT, Height, 112.3, kg, 03/25/20 10:31:00EDT, Dry Weight Start Date: 03/28/20 Status: Orderedibuprofen 800 mg oral tablet 800 mg, 1, tablet, By Mouth, Every 8 hours, not to exceed 3200 mg/day with food or milk, # 30 tablet, Refills 1, Tot. Refills 1, Maintenance, 03/29/20 12:03:00 EDT, Route to Pharmacy Electronically, [facility]/pharmacy #[id number], Please only fill either this rx... Start Date: 03/29/20 Status: Orderedibuprofen 800 mg oral tablet 800 mg, 1, tablet, By Mouth, Every 8 hours, not to exceed 3200 mg/day with food or milk, # 90 tablet, Refills 1, Tot. Refills 1, Maintenance, 03/28/20 5:29:00 EDT, Route to Pharmacy Electronically, [id number], 173, cm, 03/28/20 0:13:00 EDT, H... Start Date: 03/28/20 Status: OrderedPrenatal Multivitamins with Folic Acid 1 mg oral tablet 1 tablet, By Mouth, Daily, Can be substituted by any PNV covered by her insurance; Take one tablet daily, # 90 tablet, 2 Refills, Maintenance, 11/13/19 14:52:00 EDT, Tablet, [id number], 1 tablet By Mouth Daily,Instr:Can be substituted by any P... Start Date: 11/13/19 Status: Orderedsimethicone 80 mg oral tablet, chewable 80 mg, Chew, 3 times a day, PRN, # 90 tablet, Refills 1, Tot. Refills 1, Maintenance, Gas, 03/28/20 5:30:00 EDT, Route to Pharmacy Electronically, [facility]/pharmacy #[id number], 173, cm, 03/28/20 0:13:00 EDT, [...] scar from previous surgery Active affecting (Confirmed) Social History Social History Type Response Tobacco Use: 4 or less cigarettes(le ss than 1/4 pack)/day in last 30 days. Other: quit yesterday. Sex
--- OUTSIDE RECORDS SUMMARY | 2022-08-29 14:20 | XMS_ITS | Continuity of Care Document ---
:1995 Author Organization [facility] Address [address] [place] [phone]- Care Team Providers Name Role Phone Not on Staff, PCP Primary Care Physician Unavailable Encounter [facility] [place] Date(s): 09/13/20 - 10/13/[address] [address]- Allergies, Adverse Reactions, Alerts Substance Reaction Severity [...]
--- OUTSIDE RECORDS SUMMARY | 2022-08-29 14:20 | XMS_ITS | Continuity of Care Document ---
:1995 Author Organization [facility] Address [address] [place] [address]- Care Team Providers Name Role Phone Not on Staff, PCP Primary Care Physician Unavailable Encounter [facility] [place] Date(s): 07/27/21 - 11/18/[address] [address]- Attending Physician: Jenifer Lam CNM Admitting Physician: Jenifer Lam CNM Allergies, Adverse Reactions, Alerts No Known Allergies Immunizations Given and Recorded Vaccine Date Status Refusal Reason tetanus/diphtheria/pertussis, acel(Tdap) 01/05/20 Given tetanus/diphtheria/pertussis, acel(Tdap) 12/27/18 Given Influenza Virus Vaccine (oldterm) 06/19/17 Recorded Medications fluconazole 150 mg oral tablet 1 tablet = 150 mg, By Mouth, Once, # 1 tablet, 0 Refills, Soft Stop, 06/08/21 9:51:00 EST, Tablet, [facility]/pharmacy #[id number], Partial fill upon patient request if [...]
--- OUTSIDE RECORDS SUMMARY | 2022-08-29 14:20 | XMS_ITS | Continuity of Care Document ---
:1995 Author Organization [facility] Address [address] [place] [address]- Care Team Providers Name Role Phone Not on Staff, PCP Primary Care Physician Unavailable [place] [facility] [place] Date(s): 06/03/21 - 07/03/[address] [address]- Attending Physician: Ousmane Mcrae Admitting Physician: Ousmane Mcrae Referring Physician: AdmOusmane akers Allergies, Adverse Reactions, Alerts Substance Reaction Severity [...]
--- OUTSIDE RECORDS SUMMARY | 2022-08-29 14:20 | XMS_ITS | Continuity of Care Document ---
:1995 Author Organization [facility] Address [address] [place] [address]- Care Team Providers Name Role Phone Not on Staff, PCP Primary Care Physician Unavailable Encounter [facility] Date(s): 08/27/20 - 08/27/[address] [address] Discharge Disposition: A-D/C Home Attending Physician: Gordon Yao MD Admitting Physician: Gordon Yao MD Referring Physician: Gordon Yao MD Allergies, Adverse Reactions, Alerts Substance Reaction Severity Status NKA Active Immunizations Given and Recorded Vaccine Date Status Refusal Reason tetanus/diphtheria/pertussis, acel(Tdap) 01/05/20 Given tetanus/diphtheria/pertussis, acel(Tdap) 12/27/18 Given Influenza Virus Vaccine (oldterm) 06/19/17 Recorded Medications Apri 0.15 mg-0.03 mg oral tablet 1 tablet, By Mouth, Daily, # 28 tablet, 6 Refills, Maintenance, 08/27/20 18:44:00 EST, Tablet, [facility]/pharmacy #[id number], Partial fill upon patient request if the prescription is for a schedule II opioid drug., 1 tablet By Mouth Daily, 172.72, cm, 08/27/20 6... Start Date: 08/27/20 Status: OrderedBP Monitoring Unit BP Monitoring Unit, See Instructions, # 1 each, Refills 0, Tot. Refills 0, Maintenance, Notify Provider if BPs >160/>110, 02/04/20 11:29:00 EDT, Supply, 173, cm, 02/03/20 12:54:00 EDT, Height, 100.7, kg, 09/30/19 14:47:00 EDT, Dry Weight Start Date: 02/04/20 Status: Orderedibuprofen 800 mg oral tablet 800 mg, 1, tablet, By Mouth, Every 8 hours, # 60 tablet, Refills 0, Tot. Refills 0, Maintenance, 08/27/20 12:00:00 EST, Route to Pharmacy Electronically, [facility]/pharmacy #[id number], Partial fill upon patient request if the prescription is for a schedule II op... Start Date: 08/27/20 Status: OrderedNo Home Meds Maintenance, 08/20/20 12:58:00 EST, Supply Start Date: 08/20/20 Status: OrderedoxyCODONE 5 mg oral tablet 5 mg, 1, tablet, By Mouth, Every 6 hours, PRN, # 7 tablet, Refills 0, Tot. Refills 0, Maintenance, Pain , Severe, 08/27/20 11:59:00 EST, Route to Pharmacy Electronically, [id number], Partial fill upon patient request, 172.72, cm, 08/27/20 6:32... Start Date: 08/27/20 Status: OrderedOxyCODONE IR Tablet 5 mg, Tablet, By Mouth, Once, in PACU ONLY, if patient can tolerate PO, PRN for Pain , Mild, Routine, 08/27/20 8:26:00 EST Start Date: 08/27/20 Stop Date: 08/27/20 Status: CompletedTylenol 325 mg oral capsule 2 capsule = 650 mg, By Mouth, Every 6 hours, # 60 capsule, 0 Refills, Maintenance, 08/27/20 12:00:00EST, [id number], Partial fill upon patient request if the prescription is for a schedule II opioid drug., 172.72, cm, 08/27/20 6:32:00 EST, He... Start Date: 08/27/20 Status: Ordered Problem List Condition Effective Dates Status Health Status Informant Dermoid cyst of both Active ovaries(Confirmed) Chronic bipolar disorder(Confirmed) Active GARTH I (cervical intraepithelial Active neoplasia I)(Confirmed) History of Active hemorrhage(Confirmed) Obesity(Confirmed) Active Tobacco use(Confirmed) Active Vital Signs Most recent to oldest 1 2 3 [Reference Range]: Height 172.72 cm 172.72 cm (08/27/20 6:32 AM) (08/20/20 12:45 PM) Weight 103.8 kg 104.55 kg (08/27/20 6:32 AM) (08/20/20 12:45 PM) Oxygen Saturation [94-100 99 % 99 % 96 % %] (08/27/20 1:30 PM) (08/27/20 1:15 PM) (08/27/20 1:00 P M) Pulse Rate [55-90 bpm] 83 bpm (08/27/20 6:32 AM) Body Mass Index 34.79 35.05 [18.5-24.99] *>HHI* *>HHI* (08/27/20 6:32 AM) (08/20/20 12:45 PM) Blood Pressure 136/82 mm Hg 132/86 mm Hg 142/91 mm Hg [90-138/55-84 mm Hg] (08/27/20 1:30 PM) (08/27/20 1:15 PM) *H* (08/27/20 1:00 PM) Respiratory Rate [16-30 16 br/min 20 br/min 19 br/mi n br/min] (08/27/20 2:07 PM) (08/27/20 1:30 PM) (08/27/20 1:15 P M) Temperature [96.8-100.4 97.4 DegF 98.6 DegF 97.3 Deg F DegF] (08/27/20 1:30 PM) (08/27/20 11:30 AM) (08/27/20 6:32 AM) Liters per Minute 6 L/min 6 L/min (08/27/20 11:45 AM) (08/27/20 11:30 AM) Mode of Delivery (Oxygen) Room air Room air Room a ir (08/27/20 1:30 PM) (08/27/20 1:15 PM) (08/27/20 1:00 P M) Blood pressure sites Arm, right Arm, right Arm, right (08/27/20 1:30 PM) (08/27/20 1:15 PM) (08/27/20 1:00 P M) Temperature Route Temporal Temporal (08/27/20 11:30 AM) (08/27/20 6:32 AM) Dry Weight 104.55 kg (08/20/20 12:45 PM) Weight Obtained Via Patient/family stated (1/29/21 12:45 PM) Dry Weight Obtained Via Patient/family stated (08/20/20 12:45 PM) Social History Social History Type Response Tobacco Use: 4 or less cigarettes(le ss than 1/4 pack)/day in last 30 days. Other: quit yesterday. Sex
--- OUTSIDE RECORDS SUMMARY | 2022-08-29 14:20 | XMS_ITS | Continuity of Care Document ---
:1995 Author Organization [facility] Address [address] [place] [id number]- Care Team Providers Name Role Phone Not on Staff, PCP Primary Care Physician Unavailable Encounter [facility] [place] Date(s): 08/25/20 - 09/24/[address] [address]- Allergies, Adverse Reactions, Alerts Substance Reaction Severity [...]
--- OUTSIDE RECORDS SUMMARY | 2022-08-29 14:20 | XMS_ITS | Continuity of Care Document ---
:1995 Author Organization [facility] ic Address [address] [place] [address]- Care Team Providers Name Role Phone Not on Staff, PCP Primary Care Physician Unavailable [place] [facility] [place] - 04/25/[address] [address]- [facility] Attending Physician: Key Drew MD Admitting Physician: Key Drew MD Referring Physician: Pastor NEUMANN, Isamar Silva Allergies, Adverse Reactions, Alerts Substance Reaction Severity [...] 03/28/20 5:29:00 EDT, Route to Pharmacy Electronically, [facility]/pharmacy #1230, 173, cm, 03/28/20 0:13:00 EDT, Height, 112.3, kg, 03/25/20 10:... Start Date: 03/28/20 Status: Orderedaspirin 81 mg oral delayed release tablet 1 tablet = 81 mg, By Mouth, Daily, # 90 tablet, 2 Refills, Maintenance, 01/05/20 13:40:00 EDT, CR Tablet, [facility]/pharmacy #1230, 173, cm, 01/05/20 13:13:00 EDT, [...] 0 Refills, Maintenance, 03/28/20 5:29:00 EDT, Capsule, [facility]/pharmacy #1230, 173, cm, 03/28/20 0:13:00 EDT, Height, 112.3, kg, 03/25/20 10:31:00EDT, Dry Weight Start Date: 03/28/20 Status: Orderedibuprofen 800 mg oral tablet 800 mg, 1, tablet, By Mouth, Every 8 hours, not to exceed 3200 mg/day with food or milk, # 30 tablet, Refills 1, Tot. Refills 1, Maintenance, 03/29/20 12:03:00 EDT, Route to Pharmacy Electronically, [facility]/pharmacy #1230, Please only fill either this rx... Start Date: 03/29/20 Status: Orderedibuprofen 800 mg oral tablet 800 mg, 1, tablet, By Mouth, Every 8 hours, not to exceed 3200 mg/day with food or milk, # 90 tablet, Refills 1, Tot. Refills 1, Maintenance, 03/28/20 5:29:00 EDT, Route to Pharmacy Electronically, [facility]/pharmacy #1230, 173, cm, 03/28/20 0:13:00 EDT, H... Start Date: 03/28/20 Status: OrderedPrenatal Multivitamins with Folic Acid 1 mg oral tablet 1 tablet, By Mouth, Daily, Can be substituted by any PNV covered by her insurance; Take one tablet daily, # 90 tablet, 2 Refills, Maintenance, 11/13/19 14:52:00 EDT, Tablet, [facility]/pharmacy #1230, 1 tablet By Mouth Daily,Instr:Can be substituted by any P... Start Date: 11/13/19 Status: Orderedsimethicone 80 mg oral tablet, chewable 80 mg, Chew, 3 times a day, PRN, # 90 tablet, Refills 1, Tot. Refills 1, Maintenance, Gas, 03/28/20 5:30:00 EDT, [facility], cm, 03/28/20 0:13:00 EDT, Height, [...]
--- OUTSIDE RECORDS SUMMARY | 2022-08-29 14:20 | XMS_ITS | Continuity of Care Document ---
:1995 Author Organization [facility] ic Address [address] [place] [address]- Care Team Providers Name Role Phone Not on Staff, PCP Primary Care Physician Unavailable [place] [facility] [place] 02/08/22 - 03/10/[address] [address]- Attending Physician: Ousmane Mcrae Admitting Physician: Ousmane Mcrae Referring Physician: AdmtrOusmane Allergies, Adverse Reactions, Alerts No Known Allergies Immunizations Given and Recorded Vaccine Date Status Refusal Reason tetanus/diphtheria/pertussis, acel(Tdap) 01/05/20 Given tetanus/diphtheria/pertussis, acel(Tdap) 12/27/18 Given Influenza Virus Vaccine (oldterm) 06/19/17 Recorded Medications fluconazole 150 mg oral tablet 1 tablet = 150 mg, By Mouth, Once, # 1 tablet, 0 Refills, Soft Stop, 06/08/21 9:51:00 EST, Tablet, [facility]/pharmacy #1230, Partial fill upon patient request if [...]
--- OUTSIDE RECORDS SUMMARY | 2022-08-29 14:20 | XMS_ITS | Continuity of Care Document ---
:1993 Author Organization [facility] ic Address [address] [place] [address]- Care Team Providers Name Role Phone Not on Staff, PCP Primary Care Physician Unavailable En[place] [facility] [place] Date(s): 01/05/20 - 02/19/[address] [address]- [facility] Attending Physician: Not on Staff, Attending MD Referring Physician: Anita Romero MD Allergies, Adverse Reactions, Alerts Substance Reaction Severity Status NKA Active Immunizations Given and Recorded Vaccine Date Status Refusal Reason tetanus/diphtheria/pertussis, acel(Tdap) 01/05/20 Given tetanus/diphtheria/pertussis, acel(Tdap) 12/27/18 Given Influenza Virus Vaccine (oldterm) 06/19/17 Recorded Medications aspirin 81 mg oral delayed release tablet 1 tablet = 81 mg, By Mouth, Daily, # 90 tablet, 2 Refills, Maintenance, 01/05/20 13:40:00 EDT, CR Tablet, [facility], 173, cm, 01/05/20 13:13:00 EDT, Height, 100.7, kg, 09/30/19 14:47:00 EDT, Dry Weight Start Date: 01/05/20 Status: OrderedBP Monitoring Unit BP Monitoring Unit, See Instructions, # 1 each, Refills 0, Tot. Refills 0, Maintenance, Notify Provider if BPs >160/>110, 02/04/20 11:29:00 EDT, Supply, 173, cm, 02/03/20 12:54:00 EDT, Height, 100.7, kg, 09/30/19 14:47:00 EDT, Dry Weight Start Date: 02/04/20 Status: OrderedLSO for lower back pain LSO for lower back pain, See Instructions, # 1 each, Refills 0, Tot. Refills 0, Maintenance, please size pt for LSO for lower back pain Fax to [facility]. [id number], 01/19/20 15:41:00 EDT, Compound Start Date: 01/19/20 Status: OrderedPrenatal Multivitamins with Folic Acid 1 mg oral tablet 1 tablet, By Mouth, Daily, Can be substituted by any PNV covered by her insurance; Take one tablet daily, # 90 tablet, 2 Refills, Maintenance, 11/13/19 14:52:00 EDT, Tablet, [facility], 1 tablet By Mouth Daily,Instr:Can be substituted by any P... Start Date: 11/13/19 Status: Ordered Problem List Condition Effective Dates Status Health Status Informant Anemia in (Confirmed) Active Dermoid cyst of both Active ovaries(Confirmed) Chronic bipolar disorder(Confirmed) Active Cardiac condition affecting , Active antepartum(Confirmed) GARTH I (cervical intraepithelial Active neoplasia I)(Confirmed) echogenic bowel(Confirmed) Active History of delivery, currently [...] last 30 days. Other: quit yesterday. Sex Female
--- OUTSIDE RECORDS SUMMARY | 2022-08-29 14:20 | XMS_ITS | Continuity of Care Document ---
:1995 Author Organization [facility] Address [address] [place] [address]- Care Team Providers Name Role Phone Not on Staff, PCP Primary Care Physician Unavailable Encounter [facility] [id number] Date(s): 08/07/19 - 09/20/19 [facility] [address] [place] [address]- [facility] Attending Physician: Juan Gamboa MD Allergies, Adverse Reactions, Alerts Substance Reaction [...] Start Date: 08/16/19 Stop Date: 11/14/19 Status: OrderedTylenol Extra Strength By Mouth, Every [...] Obesity(Confirmed) Active Polyhydramnios; 2x/week Active testing(Confirmed) 1PP [id number] to previous medical records 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
--- OUTSIDE RECORDS SUMMARY | 2022-08-29 14:20 | XMS_ITS | Continuity of Care Document ---
:1995 Author Organization [facility] Address [address] [place] [address]- Care Team Providers Name Role Phone Not on Staff, PCP Primary Care Physician Unavailable [place] [facility] [place](s): 12/10/20 - 01/09/[address] [address]- Attending Physician: Ousmane Mcrae Admitting Physician: Ousmane Mcrae Referring Physician: AdmtrOusmane Allergies, Adverse Reactions, Alerts Substance Reaction Severity [...]
--- OUTSIDE RECORDS SUMMARY | 2022-08-29 14:20 | XMS_ITS | Continuity of Care Document ---
:1995 Author Organization [facility] Address [address] [place] [address]- Care Team Providers Name Role Phone Not on Staff, PCP Primary Care Physician Unavailable Encounter [facility] Date(s): 07/30/20 - 07/31/[address] [address] Encounter Diagnosis Benign neoplasm of left ovary (Final) - Discharge Disposition: A-D/C Home Attending Physician: Yaquelin Choudhury MD Admitting Physician: Yaquelin Choudhury MD Referring Physician: Yaquelin Choudhury MD Allergies, Adverse Reactions, Alerts Substance Reaction [...] 03/28/20 5:29:00 EDT, Route to Pharmacy Electronically, [facility]/pharmacy #1230, 173, cm, 03/28/20 0:13:00 EDT, Height, 112.3, kg, 03/25/20 10:... Start Date: 03/28/20 Status: Orderedaspirin 81 mg oral delayed release tablet 1 tablet = 81 mg, By Mouth, Daily, # 90 tablet, 2 Refills, Maintenance, 01/05/20 13:40:00 EDT, CR Tablet, [facility]/pharmacy #1230, 173, cm, 01/05/20 13:13:00 EDT, Height, [...] 0 Refills, Maintenance, 03/28/20 5:29:00 EDT, Capsule, [facility]/pharmacy #1230, 173, cm, 03/28/20 0:13:00 EDT, Height, 112.3, kg, 03/25/20 10:31:00EDT, Dry Weight Start Date: 03/28/20 Status: Orderedibuprofen 800 mg oral tablet 800 mg, 1, tablet, By Mouth, Every 8 hours, not to exceed 3200 mg/day with food or milk, # 30 tablet, Refills 1, Tot. Refills 1, Maintenance, 03/29/20 12:03:00 EDT, Route to Pharmacy Electronically, [facility]/pharmacy #1230, Please only fill either this rx... Start Date: 03/29/20 Status: Orderedibuprofen 800 mg oral tablet 800 mg, 1, tablet, By Mouth, Every 8 hours, not to exceed 3200 mg/day with food or milk, # 90 tablet, Refills 1, Tot. Refills 1, Maintenance, 03/28/20 5:29:00 EDT, Route to Pharmacy Electronically, [facility]/pharmacy #1230, 173, cm, 03/28/20 0:13:00 EDT, H... Start Date: 03/28/20 Status: OrderedMorPHINE Inj 2 mg, Injection, IV Push Slowly, Once, PRN for Pain , Severe, Routine, 07/30/20 23:54:00 EST Start Date: 07/30/20 Stop Date: 07/31/20 Status: CompletedPrenatal Multivitamins with Folic Acid 1 mg oral tablet 1 tablet, By Mouth, Daily, Can be substituted by any PNV covered by her insurance; Take one tablet daily, # 90 tablet, 2 Refills, Maintenance, 11/13/19 14:52:00 EDT, Tablet, [facility]/pharmacy #1230, 1 tablet By Mouth Daily,Instr:Can be substituted by any P... Start Date: 11/13/19 Status: Orderedsimethicone 80 mg oral tablet, chewable 80 mg, Chew, 3 times a day, PRN, # 90 tablet, Refills 1, Tot. Refills 1, Maintenance, Gas, 03/28/20 5:30:00 EDT, Route to Pharmacy Electronically, [facility]/pharmacy #1230, 173, cm, 03/28/20 0:13:00 EDT, Height, [...] (Confirmed) Vital Signs Most recent to oldest 1 2 3 [Reference Range]: Height 173 cm (07/30/20 10:28 PM) Weight 114 kg (07/30/20 10:28 PM) Oxygen Saturation [94-100 99 % %] (07/30/20 10:28 PM) Pulse Rate [55-90 bpm] 47 bpm 83 bpm *L* (07/30/20 10:28 PM) (07/31/20 2:08 AM) Body Mass Index 38.09 [18.5-24.99] *>HHI* (07/30/20 10:28 PM) Blood Pressure 127/75 mm Hg 150/78 mm Hg [90-138/55-84 mm Hg] (07/31/20 2:08 AM) *H* (07/30/20 10:28 PM) Respiratory Rate [16-30 18 br/min 18 br/min 18 br/mi n br/min] (07/31/20 2:08 AM) (07/31/20 12:16 AM) (07/30/20 10:28 PM) Temperature [96.8-100.4 98.6 DegF 97.6 DegF DegF] (07/31/20 2:08 AM) (07/30/20 10:28 PM) Mode of Delivery (Oxygen) Room air Room air (07/31/20 2:08 AM) (07/30/20 10:28 PM) Blood pressure sites Arm, left Arm, right (07/31/20 2:08 AM) (07/30/20 10:28 PM) Temperature Route Oral Oral (07/31/20 2:08 AM) (07/30/20 10:28 PM) Dry Weight 114 kg (07/30/20 10:28 PM) Weight Obtained Via Patient/family stated (07/30/20 10:28 PM) Dry Weight Obtained Via Patient/family stated (07/30/20 10:28 PM) Social History Social History Type Response Tobacco Use: 4 or less cigarettes(le ss than 1/4 pack)/day in last 30 days. Other: quit yesterday. Sex
--- OUTSIDE RECORDS SUMMARY | 2022-08-29 14:20 | XMS_ITS | Continuity of Care Document ---
:1995 Author Organization [facility] ic Address [address] [place] [address]- Care Team Providers Name Role Phone Not on Staff, PCP Primary Care Physician Unavailable Encounter [facility] [place] Date(s): 02/21/20 - 03/28/[address] [address]- [facility] Attending Physician: Hermann NEUMANN, Gordon Ashford Admitting Physician: Hermann NEUMANN, Gordon Ashford Referring Physician: Pastor NEUMANN, Isamar Silva Allergies, [...] 03/28/20 5:29:00 EDT, Route to Pharmacy Electronically, [facility]/pharmacy #1230, 173, cm, 03/28/20 0:13:00 EDT, Height, 112.3, kg, 03/25/20 10:... Start Date: 03/28/20 Status: Orderedaspirin 81 mg oral delayed release tablet 1 tablet = 81 mg, By Mouth, Daily, # 90 tablet, 2 Refills, Maintenance, 01/05/20 13:40:00 EDT, CR Tablet, [facility]/pharmacy #1230, 173, cm, 01/05/20 13:13:00 EDT, [...] 0 Refills, Maintenance, 03/28/20 5:29:00 EDT, Capsule, [facility]/pharmacy #1230, 173, cm, 03/28/20 0:13:00 EDT, Height, 112.3, kg, 03/25/20 10:31:00EDT, Dry Weight Start Date: 03/28/20 Status: Orderedibuprofen 800 mg oral tablet 800 mg, 1, tablet, By Mouth, Every 8 hours, not to exceed 3200 mg/day with food or milk, # 90 tablet, Refills 1, Tot. Refills 1, Maintenance, 03/28/20 5:29:00 EDT, Route to Pharmacy Electronically, [facility]/pharmacy #1230, 173, cm, 03/28/20 0:13:00 EDT, H... Start Date: 03/28/20 Status: OrderedoxyCODONE 5 mg oral tablet 5 mg, 1, tablet, By Mouth, Every 3 hours, PRN, (7-10), # 7 tablet, Refills 0, Tot. Refills 0, Acute 04/22/20 12:00:00 EDT, Pain , Severe, 03/28/20 5:30:00 EDT, Route to Pharmacy Electronically, [facility]/pharmacy #1230, Partial fill upon patient request, 17... Start Date: 03/28/20 Stop Date: 04/22/20 Status: OrderedPrenatal Multivitamins with Folic Acid 1 mg oral tablet 1 tablet, By Mouth, Daily, Can be substituted by any PNV covered by her insurance; Take one tablet daily, # 90 tablet, 2 Refills, Maintenance, 11/13/19 14:52:00 EDT, Tablet, [facility]/pharmacy #1230, 1 tablet By Mouth Daily,Instr:Can be substituted by any P... Start Date: 11/13/19 Status: Orderedsimethicone 80 mg oral tablet, chewable 80 mg, Chew, 3 times a day, PRN, # 90 tablet, Refills 1, Tot. Refills 1, Maintenance, Gas, 03/28/20 5:30:00 EDT, [facility], cm, 03/28/20 0:13:00 EDT, Height, [...]
--- OUTSIDE RECORDS SUMMARY | 2022-08-29 14:20 | XMS_ITS | Continuity of Care Document ---
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) - Discharge Disposition: A-D/C Home Attending Physician: Christina Perkins MD Admitting Physician: Christina Perkins MD Allergies, Adverse Reactions, Alerts Substance Reaction [...] EDT, Dry Weight Start Date: 01/05/20 Status: OrderedDiflucan 150 mg oral tablet 1 tablet = 150 mg, By Mouth, Once, # 1 tablet, 0 Refills, Soft Stop, 01/05/20 14:03:00 EDT, Tablet, [facility], 173, cm, 01/05/20 13:13:00 EDT, Height, 100.7, kg, 09/30/19 14:47:00 EDT, Dry Weight Start Date: 01/05/20 Status: Orderedferrous sulfate 325 mg oral enteric coated tablet 1, tablet, By Mouth, Daily, # 90 tablet, Refills 0, Tot. Refills 0, Maintenance, 01/11/20 15:02:00 EDT, Route to Pharmacy Electronically, [facility], 173, cm, 01/05/20 13:13:00 EDT, Height, 100.7,kg, 09/30/19 14:47:00 EDT, Dry Weight Start Date: 01/11/20 Status: OrderedLSO for lower back pain LSO for lower back pain, See Instructions, # 1 each, Refills 0, Tot. Refills 0, Maintenance, please size pt for LSO for lower back pain Fax to [facility]. [id number], 12/11/19 13:40:00 EDT, Compound Start Date: 12/11/19 Status: OrderedPrenatal Multivitamins with Folic Acid 1 mg oral tablet 1 tablet, By Mouth, Daily, Can be substituted by any PNV covered by her insurance; Take one tablet daily, # 90 tablet, 2 Refills, Maintenance, 11/13/19 14:52:00 EDT, Tablet, [facility]/pharmacy #1230, 1 tablet By Mouth [...]
--- OUTSIDE RECORDS SUMMARY | 2022-08-29 14:20 | XMS_ITS | Continuity of Care Document ---
:1995 Author Organization [facility] Address [address] [place] [address]- Care Team Providers Name Role Phone Not on Staff, PCP Primary Care Physician Unavailable Encounter [facility] [place] Date(s): 09/08/20 - 01/05/[address] [address]- Attending Physician: Not on Staff, Attending MD Allergies, Adverse Reactions, Alerts Substance Reaction [...]
--- OUTSIDE RECORDS SUMMARY | 2022-08-29 14:20 | XMS_ITS | Continuity of Care Document ---
:1995 Author Organization [facility] ic Address [address] [place] [address]- Care Team Providers Name Role Phone Not on Staff, PCP Primary Care Physician Unavailable [place] [facility] [place](s): 04/29/20 - 05/29/[address] [address]- Allergies, Adverse Reactions, Alerts Substance Reaction Severity [...] 03/28/20 5:29:00 EDT, Route to Pharmacy Electronically, [facility]/pharmacy #1230, 173, cm, 03/28/20 0:13:00 EDT, Height, 112.3, kg, 03/25/20 10:... Start Date: 03/28/20 Status: Orderedaspirin 81 mg oral delayed release tablet 1 tablet = 81 mg, By Mouth, Daily, # 90 tablet, 2 Refills, Maintenance, 01/05/20 13:40:00 EDT, CR Tablet, [facility]/pharmacy #1230, 173, cm, 01/05/20 13:13:00 EDT, Height, [...] 0 Refills, Maintenance, 03/28/20 5:29:00 EDT, Capsule, [facility]/pharmacy #1230, 173, cm, 03/28/20 0:13:00 EDT, Height, 112.3, kg, 03/25/20 10:31:00EDT, Dry Weight Start Date: 03/28/20 Status: Orderedibuprofen 800 mg oral tablet 800 mg, 1, tablet, By Mouth, Every 8 hours, not to exceed 3200 mg/day with food or milk, # 30 tablet, Refills 1, Tot. Refills 1, Maintenance, 03/29/20 12:03:00 EDT, Route to Pharmacy Electronically, [facility]/pharmacy #1230, Please only fill either this rx... Start Date: 03/29/20 Status: Orderedibuprofen 800 mg oral tablet 800 mg, 1, tablet, By Mouth, Every 8 hours, not to exceed 3200 mg/day with food or milk, # 90 tablet, Refills 1, Tot. Refills 1, Maintenance, 03/28/20 5:29:00 EDT, Route to Pharmacy Electronically, [facility]/pharmacy #1230, 173, cm, 03/28/20 0:13:00 EDT, H... Start Date: 03/28/20 Status: OrderedPrenatal Multivitamins with Folic Acid 1 mg oral tablet 1 tablet, By Mouth, Daily, Can be substituted by any PNV covered by her insurance; Take one tablet daily, # 90 tablet, 2 Refills, Maintenance, 11/13/19 14:52:00 EDT, Tablet, [facility]/pharmacy #1230, 1 tablet By Mouth Daily,Instr:Can be substituted by any P... Start Date: 11/13/19 Status: Orderedsimethicone 80 mg oral tablet, chewable 80 mg, Chew, 3 times a day, PRN, # 90 tablet, Refills 1, Tot. Refills 1, Maintenance, Gas, 03/28/20 5:30:00 EDT, Route to Pharmacy Electronically, [facility]/pharmacy #1230, 173, cm, 03/28/20 0:13:00 EDT, Height, [...]
--- OUTSIDE RECORDS SUMMARY | 2022-08-29 14:20 | XMS_ITS | Continuity of Care Document ---
:1993 Author Organization [facility] Address [address] [place] [address]- Care Team Providers Name Role Phone Not on Staff, PCP Primary Care Physician Unavailable Encounter [facility] NBR [id number] Date(s): 02/10/21 - 03[facility]12/[facility] [address] [place] [address]- Attending Physician: Ousmane Mcrae Admitting Physician: Ousmane Mcrae Referring Physician: AdmtrOusmane Allergies, Adverse Reactions, Alerts Substance Reaction Severity Status NKA Active Immunizations Given and Recorded Vaccine Date Status Refusal Reason tetanus/diphtheria/pertussis, acel(Tdap) 01/05/20 Given tetanus/diphtheria/pertussis, acel(Tdap) 12/27/18 Given Influenza Virus Vaccine (oldterm) 06/19/17 Recorded Problem List Condition Effective Dates Status Health Status Informant Dermoid cyst of both Active ovaries(Confirmed) Chronic bipolar disorder(Confirmed) Active GARTH I (cervical intraepithelial Active neoplasia I)(Confirmed) Obesity(Confirmed) Active Tobacco use(Confirmed) Active Social History Social History Type Response Tobacco Use: 4 or less cigarettes(le ss than 1/4 pack)/day in last 30 days. Other: quit yesterday. Sex
--- OUTSIDE RECORDS SUMMARY | 2022-08-29 14:20 | XMS_ITS | Continuity of Care Document ---
:1995 Author Organization [facility] Address [address] [place] [address]- Care Team Providers Name Role Phone Not on Staff, PCP Primary Care Physician Unavailable Encounter [facility] Date(s): 01/30/22 - 03/01/[address] [address]- Allergies, Adverse Reactions, Alerts No Known Allergies [...]
--- OUTSIDE RECORDS SUMMARY | 2022-08-29 14:20 | XMS_ITS | Continuity of Care Document ---
:1995 Author Organization [facility] Address [address] [place] [address]- Care Team Providers Name Role Phone Danny Alberts MD Primary Care Physician Encounter [facility] Date(s): 08/12/19 - 08/12/[address] [address]- [facility] Discharge Disposition: A-D/C Home Attending Physician: Bernardo Calvert MD Admitting Physician: Bernardo Calvert MD Referring Physician: Not on Staff, Referring [...] EST, Dry Weight Start Date: 08/12/19 Status: Ordereddocusate-senna 50 mg-187 mg oral tablet 2 tablet, By Mouth, Daily at bedtime, for 14 days, Hold if diarrhea or multiple bowel movement, # 28tablet, 0 Refills, Acute 08/15/19 14:06:00 EST, 08/01/19 14:06:00 EST, [facility]t, [facility], 2tablet By Mouth Daily at bedtime,x14 days,Instr:H... 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 [id number] from 6308-7430; resolved with lifestyle changes and loss of 80 [id number] on meds currently Vital Signs Most recent to oldest 1 2 3 [Reference Range]: Height 174 cm 174 cm 174 cm (08/12/19 7:45 PM) (08/12/19 5:08 PM) (08/12/19 5:0 4 PM) Weight 101.2 kg 101.2 kg 101.2 kg (08/12/19 7:45 PM) (08/12/19 5:08 PM) (08/12/19 5:0 4 PM) Oxygen Saturation [94-100 %] 100 % 100 % (08/12/19 7:45 PM) (08/12/19 5:08 PM) Pulse Rate [55-90 bpm] 80 bpm 86 bpm 102 bpm (08/12/19 7:45 PM) (08/12/19 6:50 PM) *H* (08/12/19 5:08 PM ) Body Mass Index [18.5-24.99] 33.43 33.43 *>HHI* *>HHI* (08/12/19 7:45 PM) (08/12/19 5:04 PM) Blood Pressure [90-138/55-84 mm 116/78 mm Hg 134/80 mm Hg Hg] (08/12/19 7:45 PM) (08/12/19 5:08 PM) Respiratory Rate [16-30 br/min] 16 br/min 16 br/min 18 br/min (08/12/19 7:45 PM) (08/12/19 6:50 PM) (08/12/19 5:0 8 PM) Temperature [96.8-100.4 DegF] 98 DegF 99.1 DegF (08/12/19 7:45 PM) (08/12/19 5:08 PM) Mode of Delivery (Oxygen) Room air Room air (08/12/19 7:45 PM) (08/12/19 5:08 PM) Blood pressure sites Arm, right (08/12/19 7:45 PM) Temperature Route Oral Oral (08/12/19 7:45 PM) (08/12/19 5:08 PM) Dry Weight 101.2 kg 101.2 kg 101.2 kg (08/12/19 7:45 PM) (08/12/19 5:08 PM) (08/12/19 5:0 4 PM) Weight Obtained Via Standing scale (08/12/19 5:04 PM) Dry Weight Obtained Via Standing scale (08/12/19 5:04 PM) Social History Social History Type Response Tobacco Use: 4 or less cigarettes(le ss than 1/4 pack)/day in last 30 days. Tobacco user in househ old: Yes. Other: quit at 2 months . Sex
--- OUTSIDE RECORDS SUMMARY | 2022-08-29 14:20 | XMS_ITS | Continuity of Care Document ---
:1995 Author Organization [facility] ic Address [address] [place] [address]- Care Team Providers Name Role Phone Not on Staff, PCP Primary Care Physician Unavailable [place] [facility] [place] - 11/18/[address] [address]- Attending Physician: Ousmane Mcrae Admitting Physician: Ousmane [...]
--- OUTSIDE RECORDS SUMMARY | 2022-08-29 14:21 | XMS_ITS | Continuity of Care Document ---
:1995 Author Organization [facility] Address [address] [facility] 6 [place] [address]- Care Team Providers Name Role Phone Not on Staff, PCP Primary Care Physician Unavailable Encounter [facility] Date(s): 07/29/19 - 08/29/19 [facility] [address] [place] [address], [facility] 6 [place] [address]- [facility] Attending Physician: Estela Stringer DO Referring Physician: Not on Staff, Referring MD [...] Obesity(Confirmed) Active Polyhydramnios; 2x/week Active testing(Confirmed) 1PP [id number] to previous medical records thin uterine 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
--- OUTSIDE RECORDS SUMMARY | 2022-08-29 14:21 | XMS_ITS | Continuity of Care Document ---
:1993 Author Organization [facility] ic Address [address] [place] [address]- Care Team Providers Name Role Phone Not on Staff, PCP Primary Care Physician Unavailable Encounter [facility] Date(s): 03/27/20 - 05/02/[address] [address]- [facility] Attending Physician: Key Drew MD Admitting Physician: [...] 03/28/20 5:29:00 EDT, Route to Pharmacy Electronically, [facility]/pharmacy #1230, 173, cm, 03/28/20 0:13:00 EDT, Height, 112.3, kg, 03/25/20 10:... Start Date: 03/28/20 Status: Orderedaspirin 81 mg oral delayed release tablet 1 tablet = 81 mg, By Mouth, Daily, # 90 tablet, 2 Refills, Maintenance, 01/05/20 13:40:00 EDT, CR Tablet, [facility]/pharmacy #1230, 173, cm, 01/05/20 13:13:00 [...] 0 Refills, Maintenance, 03/28/20 5:29:00 EDT, Capsule, [facility]/pharmacy #1230, 173, cm, 03/28/20 0:13:00 EDT, Height, 112.3, kg, 03/25/20 10:31:00EDT, Dry Weight Start Date: 03/28/20 Status: Orderedibuprofen 800 mg oral tablet 800 mg, 1, tablet, By Mouth, Every 8 hours, not to exceed 3200 mg/day with food or milk, # 30 tablet, Refills 1, Tot. Refills 1, Maintenance, 03/29/20 12:03:00 EDT, Route to Pharmacy Electronically, [facility]/pharmacy #1230, Please only fill either this rx... Start Date: 03/29/20 Status: Orderedibuprofen 800 mg oral tablet 800 mg, 1, tablet, By Mouth, Every 8 hours, not to exceed 3200 mg/day with food or milk, # 90 tablet, Refills 1, Tot. Refills 1, Maintenance, 03/28/20 5:29:00 EDT, Route to Pharmacy Electronically, [facility]/pharmacy #1230, 173, cm, 03/28/20 0:13:00 EDT, H... Start Date: 03/28/20 Status: OrderedPrenatal Multivitamins with Folic Acid 1 mg oral tablet 1 tablet, By Mouth, Daily, Can be substituted by any PNV covered by her insurance; Take one tablet daily, # 90 tablet, 2 Refills, Maintenance, 11/13/19 14:52:00 EDT, Tablet, [facility]/pharmacy #1230, 1 tablet By Mouth Daily,Instr:Can be substituted by any P... Start Date: 11/13/19 Status: Orderedsimethicone 80 mg oral tablet, chewable 80 mg, Chew, 3 times a day, PRN, # 90 tablet, Refills 1, Tot. Refills 1, Maintenance, Gas, 03/28/20 5:30:00 EDT, [facility], cm, 03/28/20 0:13:00 [...]
--- OUTSIDE RECORDS SUMMARY | 2022-08-29 14:21 | XMS_ITS | Continuity of Care Document ---
:1995 Author Organization [facility] ic Address [address] [place] [address]- Care Team Providers Name Role Phone Not on Staff, PCP Primary Care Physician Unavailable Encounter [facility] [place] Date(s): 03/11/20 - 04/10/[address] [address]- [facility] Allergies, Adverse Reactions, Alerts Substance Reaction Severity [...] 03/28/20 5:29:00 EDT, Route to Pharmacy Electronically, [facility]/pharmacy #1230, 173, cm, 03/28/20 0:13:00 EDT, Height, 112.3, kg, 03/25/20 10:... Start Date: 03/28/20 Status: Orderedaspirin 81 mg oral delayed release tablet 1 tablet = 81 mg, By Mouth, Daily, # 90 tablet, 2 Refills, Maintenance, 01/05/20 13:40:00 EDT, CR Tablet, [facility]/pharmacy #1230, 173, cm, 01/05/20 [...] 0 Refills, Maintenance, 03/28/20 5:29:00 EDT, Capsule, [facility]/pharmacy #1230, 173, cm, 03/28/20 0:13:00 EDT, Height, 112.3, kg, 03/25/20 10:31:00EDT, Dry Weight Start Date: 03/28/20 Status: Orderedibuprofen 800 mg oral tablet 800 mg, 1, tablet, By Mouth, Every 8 hours, not to exceed 3200 mg/day with food or milk, # 30 tablet, Refills 1, Tot. Refills 1, Maintenance, 03/29/20 12:03:00 EDT, Route to Pharmacy Electronically, [facility]/pharmacy #1230, Please only fill either this rx... Start Date: 03/29/20 Status: Orderedibuprofen 800 mg oral tablet 800 mg, 1, tablet, By Mouth, Every 8 hours, not to exceed 3200 mg/day with food or milk, # 90 tablet, Refills 1, Tot. Refills 1, Maintenance, 03/28/20 5:29:00 EDT, Route to Pharmacy Electronically, [facility]/pharmacy #1230, 173, cm, 03/28/20 0:13:00 EDT, H... Start Date: 03/28/20 Status: OrderedoxyCODONE 5 mg oral tablet 5 mg, 1, tablet, By Mouth, Every 3 hours, PRN, (7-10), # 7 tablet, Refills 0, Tot. Refills 0, Acute 04/22/20 12:00:00 EDT, Pain , Severe, 04/22/20 12:00:00 EDT, Route to Pharmacy Electronically, [facility]/pharmacy #1230, Partial fill upon patient request, 1... Start Date: 04/22/20 Stop Date: 04/22/20 Status: OrderedoxyCODONE 5 mg oral tablet 5 mg, 1, tablet, By Mouth, Every 3 hours, PRN, (7-10), # 7 tablet, Refills 0, Tot. Refills 0, Acute 04/22/20 12:00:00 EDT, Pain , Severe, 03/28/20 5:30:00 EDT, [facility] Partial fill upon patient request, 17... Start Date: 03/28/20 Stop Date: 04/22/20 Status: OrderedPrenatal Multivitamins with Folic Acid 1 mg oral tablet 1 tablet, By Mouth, Daily, Can be substituted by any PNV covered by her insurance; Take one tablet daily, # 90 tablet, 2 Refills, Maintenance, 11/13/19 14:52:00 EDT, Tablet, [facility]/pharmacy #1230, 1 tablet By Mouth Daily,Instr:Can be substituted by any P... Start Date: 11/13/19 Status: Orderedsimethicone 80 mg oral tablet, chewable 80 mg, Chew, 3 times a day, PRN, # 90 tablet, Refills 1, Tot. Refills 1, Maintenance, Gas, 03/28/20 5:30:00 EDT, Route to Pharmacy Electronically, [facility]/pharmacy #1230, 173, cm, 03/28/20 [...]
--- OUTSIDE RECORDS SUMMARY | 2022-08-29 14:21 | XMS_ITS | Continuity of Care Document ---
:1995 Author Organization [facility] Address [address] [place] [address]- Care Team Providers Name Role Phone Aristeo NEUMANN, Danny Ackerman Primary Care Physician Encounter [facility] Date(s): 07/29/19 - 07/29/[address] [address]- [place] Discharge Disposition: A-D/C Home Attending Physician: Larry Olson MD Admitting Physician: Larry Olson MD Referring Physician: Not on Staff, Referring MD Allergies, Adverse Reactions, Alerts Substance Reaction Severity Status NKA Active Immunizations Given and Recorded Vaccine Date Status Refusal Reason tetanus/diphtheria/pertussis, acel(Tdap) 12/27/18 Given Influenza Virus Vaccine (oldterm) 06/19/17 Recorded Medications ibuprofen 600 mg oral tablet 600 mg, 1, tablet, By Mouth, Every 6 hours, PRN, # 16 tablet, Refills 0, Tot. Refills 0, Acute 08/06/19 10:22:00 EST, Pain , Moderate, 07/29/19 10:22:00 EST, Route to Pharmacy Electronically, [facility]12[facility], 173, cm, 07/29/19 10:13:00 EST, Height,... 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 [id number] from 5086-1086; resolved with lifestyle changes and loss of 80 cithpv2ahb on meds currently Vital Signs Most recent to oldest 1 2 3 [Reference Range]: Height 173 cm 173 cm (07/29/19 10:13 AM) (07/29/19 9:00 AM) Weight 109.5 kg 109.5 kg (07/29/19 10:13 AM) (07/29/19 9:00 AM) Oxygen Saturation [94-100 %] 100 % 100 % (07/29/19 10:13 AM) (07/29/19 9:00 AM) Pulse Rate [55-90 bpm] 55 bpm 57 bpm (07/29/19 10:13 AM) (07/29/19 9:00 AM) Body Mass Index [18.5-24.99] 36.59 *>HHI* (07/29/19 10:13 AM) Blood Pressure [90-138/55-84 91/67 mm Hg 102/84 mm Hg mm Hg] (07/29/19 10:13 AM) (07/29/19 9:00 AM) Respiratory Rate [16-30 16 br/min 16 br/min 16 br/mi n br/min] (07/29/19 10:13 AM) (07/29/19 9:48 AM) (07/29/19 9:00 AM) Temperature [96.8-100.4 97.9 DegF DegF] (07/29/19 9:00 AM) Mode of Delivery (Oxygen) Room air Room air (07/29/19 10:13 AM) (07/29/19 9:00 AM) Temperature Route Temporal (07/29/19 9:00 AM) Dry Weight 109.5 kg 109.5 kg (1/7/20 10:13 AM) (07/29/19 9:00 AM) Weight Obtained Via Patient/family stated (07/29/19 9:00 AM) Social History Social History Type Response Tobacco Use: 4 or less cigarettes(le ss than 1/4 pack)/day in last 30 days. Tobacco user in househ old: Yes. Other: quit at 2 months . Sex
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
--- OUTSIDE RECORDS SUMMARY | 2022-08-29 14:21 | XMS_ITS | Continuity of Care Document ---
:1995 Author Organization [facility] Address [address] [place] [address]- Care Team Providers Name Role Phone Not on Staff, PCP Primary Care Physician Unavailable Encounter [facility] Date(s): 06/08/21 - 07/08/[address] [address]- Allergies, Adverse Reactions, Alerts Substance Reaction Severity [...]
--- OUTSIDE RECORDS SUMMARY | 2022-08-29 14:21 | XMS_ITS | Continuity of Care Document ---
:1993 Author Organization [facility] Address [address] [place] [address]- Care Team Providers Name Role Phone Not on Staff, PCP Primary Care Physician Unavailable Encounter [facility] Date(s): 03/19/20 - 03/19/[address] [address]- [facility] Discharge Disposition: A-D/C Home Attending Physician: Christina Perkins MD Admitting Physician: Gregorio NEUMANN, Christina Referring Physician: Christina Perkins MD Allergies, Adverse Reactions, [...] pain Fax to [facility]. 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 Active , currently (Confirmed) History of Active hemorrhage(Confirmed) Obesity in (Confirmed) Active Chronic hypertension in Active (Confirmed) Request for sterilization(Confirmed) Active Tobacco use(Confirmed) Active Uterine scar from previous surgery Active affecting (Confirmed) 1Problem added by Discern Expert Vital Signs Most recent to oldest [Reference Range]: 1 Weight 113.8 kg (03/19/20 2:21 PM) Oxygen Saturation [94-100 %] 97 % (03/19/20 2:35 PM) Blood Pressure [90-138/55-84 mm Hg] 123/81 mm Hg (03/19/20 2:35 PM) Respiratory Rate [16-30 br/min] 18 br/min (03/19/20 2:35 PM) Temperature [96.8-100.4 DegF] 97.3 DegF (03/19/20 2:35 PM) Temperature Route Oral (03/19/20 2:35 PM) Dry Weight 113.8 kg (03/19/20 2:21 PM) Weight Obtained Via Standing scale (03/19/20 2:21 PM) Dry Weight Obtained Via Standing scale (03/19/20 2:21 PM) Social History Social History Type Response Tobacco Use: 4 or less cigarettes(le ss than 1/4 pack)/day in last 30 days. Other: quit yesterday. Sex Female
--- OUTSIDE RECORDS SUMMARY | 2022-08-29 14:21 | XMS_ITS | Continuity of Care Document ---
:1993 Author Organization [facility] Address [address] [facility] [address] [place] [address]- Care Team Providers Name Role Phone Aristeo NEUMANN, Danny Ackerman Primary Care Physician Encounter [facility] Date(s): 07/30/19 - 08/09/19 [facility] [address] [place] [address], [facility] [address] [place] [address]- [facility] Attending Physician: Ousmane Mcrae Admitting Physician: Ousmane [...] Obesity(Confirmed) Active Polyhydramnios; 2x/week Active testing(Confirmed) 1PP eufnhi1syqdouhee to previous medical records 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 Tobacco user in househ old: Yes. Other: quit at 2 months . Sex
--- OUTSIDE RECORDS SUMMARY | 2022-08-29 14:21 | XMS_ITS | Continuity of Care Document ---
:1995 Author Organization [facility] ic Address [address] [place] [address]- Care Team Providers Name Role Phone Not on Staff, PCP Primary Care Physician Unavailable Encounter [facility] Date(s): 03/26/20 - 05/29/[address] [address]- Attending Physician: Not on Staff, Attending MD [...] 03/28/20 5:29:00 EDT, Route to Pharmacy Electronically, [facility]/pharmacy #1230, 173, cm, 03/28/20 0:13:00 EDT, Height, 112.3, kg, 03/25/20 10:... Start Date: 03/28/20 Status: Orderedaspirin 81 mg oral delayed release tablet 1 tablet = 81 mg, By Mouth, Daily, # 90 tablet, 2 Refills, Maintenance, 01/05/20 13:40:00 EDT, CR Tablet, [facility]/pharmacy #1230, 173, cm, 01/05/20 13:13:00 EDT, [...] 0 Refills, Maintenance, 03/28/20 5:29:00 EDT, Capsule, [facility]/pharmacy #1230, 173, cm, 03/28/20 0:13:00 EDT, Height, 112.3, kg, 03/25/20 10:31:00EDT, Dry Weight Start Date: 03/28/20 Status: Orderedibuprofen 800 mg oral tablet 800 mg, 1, tablet, By Mouth, Every 8 hours, not to exceed 3200 mg/day with food or milk, # 30 tablet, Refills 1, Tot. Refills 1, Maintenance, 03/29/20 12:03:00 EDT, Route to Pharmacy Electronically, [facility]/pharmacy #1230, Please only fill either this [...] Route to Pharmacy Electronically, [facility]/pharmacy #1230, 173, cm, 03/28/20 0:13:00 EDT, [...]
--- OUTSIDE RECORDS SUMMARY | 2022-08-29 14:21 | XMS_ITS | Continuity of Care Document ---
:1995 Author Organization [facility] Address [address] [place] [address]- Care Team Providers Name Role Phone Not on Staff, PCP Primary Care Physician Unavailable Encounter [facility] Date(s): 03/25/20 - 03/28/[address] [address]- [facility] Discharge Disposition: A-D/C Home Attending Physician: Camilla Hubbard MD Admitting Physician: Camilla Hubbard MD Referring Physician: Camilla Hubbard MD Allergies, Adverse Reactions, Alerts Substance Reaction [...] 03/28/20 5:29:00 EDT, Route to Pharmacy Electronically, [facility]/pharmacy #1230, 173, cm, 03/28/20 0:13:00 EDT, Height, 112.3, kg, 03/25/20 10:... Start Date: 03/28/20 Status: Orderedaspirin 81 mg oral delayed release tablet 1 tablet = 81 mg, By Mouth, Daily, # 90 tablet, 2 Refills, Maintenance, 01/05/20 13:40:00 EDT, CR Tablet, [facility]/pharmacy #1230, 173, cm, 01/05/20 13:13:00 EDT, Height, [...] 0 Refills, Maintenance, 03/28/20 5:29:00 EDT, Capsule, [facility]/pharmacy #1230, 173, cm, 03/28/20 0:13:00 EDT, Height, 112.3, kg, 03/25/20 10:31:00EDT, Dry Weight Start Date: 03/28/20 Status: Orderedibuprofen 800 mg oral tablet 800 mg, 1, tablet, By Mouth, Every 8 hours, not to exceed 3200 mg/day with food or milk, # 90 tablet, Refills 1, Tot. Refills 1, Maintenance, 03/28/20 5:29:00 EDT, Route to Pharmacy Electronically, [facility]/pharmacy #1230, 173, cm, 03/28/20 0:13:00 EDT, H... Start Date: 03/28/20 Status: OrderedoxyCODONE 5 mg oral tablet 5 mg, 1, tablet, By Mouth, Every 3 hours, PRN, (7-10), # 7 tablet, Refills 0, Tot. Refills 0, Acute 04/22/20 12:00:00 EDT, Pain , Severe, 03/28/20 5:30:00 EDT, Route to Pharmacy Electronically, [facility]/pharmacy #1230, Partial fill upon patient request, 17... Start Date: 03/28/20 Stop Date: 04/22/20 Status: OrderedPrenatal Multivitamins with Folic Acid 1 mg oral tablet 1 tablet, By Mouth, Daily, Can be substituted by any PNV covered by her insurance; Take one tablet daily, # 90 tablet, 2 Refills, Maintenance, 11/13/19 14:52:00 EDT, Tablet, [facility]/pharmacy #1230, 1 tablet By Mouth Daily,Instr:Can be substituted by any P... Start Date: 11/13/19 Status: Orderedsimethicone 80 mg oral tablet, chewable 80 mg, Chew, 3 times a day, PRN, # 90 tablet, Refills 1, Tot. Refills 1, Maintenance, Gas, 03/28/20 5:30:00 EDT, [facility] 173, cm, 03/28/20 0:13:00 EDT, [...] scar from previous surgery Active affecting (Confirmed) Procedures Procedure Date Related Diagnosis Body Site Status delivery only; 03/25/20 Comp leted Vital Signs Most recent to oldest 1 2 3 [Reference Range]: Height 173 cm 173 cm 173 cm (03/28/20 9:14 AM) (03/28/20 12:03 AM) (03/27/20 4:00 PM) Weight 112.3 kg (03/25/20 10:31 AM) Oxygen Saturation [94-100 %] 100 % 100 % 100 % (03/28/20 9:14 AM) (03/28/20 12:03 AM) (03/27/20 4:00 PM) Pulse Rate [55-90 bpm] 65 bpm 81 bpm 61 bpm (03/28/20 9:14 AM) (03/28/20 12:03 AM) (03/27/20 4:00 PM) Body Mass Index [18.5-24.99] 37.52 *>HHI* (03/25/20 10:31 AM) Blood Pressure [90-138/55-84 mm 134/88 mm Hg 139/78 mm Hg 129/63 mm Hg Hg] (03/28/20 9:14 AM) *H* (03/27/20 4:00 PM ) (03/28/20 12:03 AM) Respiratory Rate [16-30 br/min] 18 br/min 18 br/min 18 br/min (03/28/20 11:30 AM) (03/28/20 11:29 AM) (03/28/20 11:2 9 AM) Temperature [96.8-100.4 DegF] 97.7 DegF 98 DegF 97 .6 DegF (03/28/20 9:14 AM) (03/28/20 12:03 AM) (03/27/20 4:00 PM) Mode of Delivery (Oxygen) Room air Room air Room a ir (03/28/20 12:03 AM) (03/27/20 4:00 PM) (03/27/20 8:00 AM) Blood pressure sites Arm, right Arm, left Arm, right (03/28/20 9:14 AM) (03/28/20 12:03 AM) (03/27/20 4:00 PM) Temperature Route Oral Oral Oral (03/28/20 9:14 AM) (03/28/20 12:03 AM) (03/27/20 4:00 PM) Dry Weight 112.3 kg (03/25/20 10:31 AM) Social History Social History Type Response Tobacco Use: 4 or less cigarettes(le ss than 1/4 pack)/day in last 30 days. Other: quit yesterday. Sex Female
--- OUTSIDE RECORDS SUMMARY | 2022-08-29 14:21 | XMS_ITS | Continuity of Care Document ---
:1995 Author Organization [facility] Address [address] [place] [address]- Care Team Providers Name Role Phone Not on Staff, PCP Primary Care Physician Unavailable [place] [facility] [place] - 09/01/[address] [address]- Allergies, Adverse Reactions, Alerts Substance Reaction Severity [...] 08/27/20 12:00:00 EST, Route to Pharmacy Electronically, [facility]/pharmacy #[id number], Partial fill upon patient request [...] 08/27/20 11:59:00 EST, Route to Pharmacy Electronically, [facility]/pharmacy #[id number], Partial fill upon patient request, 172.72, cm, 08/27/20 6:32... Start Date: 08/27/20 Status: OrderedTylenol 325 mg oral capsule 2 capsule = 650 mg, By Mouth, Every 6 hours, # 60 capsule, 0 Refills, Maintenance, 08/27/20 12:00:00EST, [facility]/pharmacy #[id number], Partial fill upon patient request [...]
--- OUTSIDE RECORDS SUMMARY | 2022-08-29 14:21 | XMS_ITS | Continuity of Care Document ---
:1995 Author Organization [facility] ic Address [address] [place] [address]- Care Team Providers Name Role Phone Not on Staff, PCP Primary Care Physician Unavailable Encounter [facility] Date(s): 12/11/19 - 02/07/[address] [address]- [facility] Attending Physician: Not on Staff, [...] EDT, Dry Weight Start Date: 02/04/20 Status: OrderedDiflucan 150 mg oral tablet 1 tablet = 150 mg, By Mouth, Once, # 1 tablet, 0 Refills, Soft Stop, 01/05/20 14:03:00 EDT, Tablet, [facility]/pharmacy #[id number], 173, cm, 01/05/20 13:13:00 EDT, Height, 100.7, kg, 09/30/19 14:47:00 EDT, Dry Weight Start Date: 01/05/20 Status: Orderedferrous sulfate 325 mg oral enteric coated tablet 1, tablet, By Mouth, Daily, # 90 tablet, Refills 0, Tot. Refills 0, Maintenance, 01/11/20 15:02:00 EDT, Route to Pharmacy Electronically, [facility] STORE [id number], 173, cm, 01/05/20 13:13:00 EDT, Height, 100.7,kg, 09/30/19 14:47:00 EDT, Dry Weight Start Date: 01/11/20 Status: OrderedLSO for lower back pain LSO for lower back pain, See Instructions, # 1 each, Refills 0, Tot. Refills 0, Maintenance, please size pt for LSO for lower back pain Fax to [facility]. [id number], 01/19/20 15:41:00 EDT, Compound Start Date: 01/19/20 Status: OrderedPrenatal Multivitamins with Folic Acid 1 mg oral tablet 1 tablet, By Mouth, Daily, Can be substituted by any PNV covered by her insurance; Take one tablet daily, # 90 tablet, 2 Refills, Maintenance, 11/13/19 14:52:00 EDT, Tablet, [facility]/pharmacy #[id number], 1 tablet By Mouth Daily,Instr:Can be [...]
--- OUTSIDE RECORDS SUMMARY | 2022-08-29 14:21 | XMS_ITS | Continuity of Care Document ---
:1995 Author Organization [facility] ic Address [address] [place] [address]- Care Team Providers Name Role Phone Not on Staff, PCP Primary Care Physician Unavailable Encounter [facility] [place] Date(s): 04/06/20 - 05/06/[address] [address]- [facility] Allergies, Adverse Reactions, Alerts Substance Reaction Severity [...]
--- OUTSIDE RECORDS SUMMARY | 2022-08-29 14:21 | XMS_ITS | Continuity of Care Document ---
:1995 Author Organization [facility] Address [address] [place] [address]- Care Team Providers Name Role Phone Not on Staff, PCP Primary Care Physician Unavailable Encounter 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 [id number] from [id number]; resolved with lifestyle changes and loss of 80 bgoglx3mno on meds currently Results Orders for Microbiology Reports Name Date Urine Culture (URINE CULTURE) 09/09/19 Microbiology Reports TEST:Urine Culture STATUS:Unauthenticated BODY SITE: SOURCE:URINE COLLECTED DATE/TIME:09/09/19 7:18 PMUrine Culture SPECIMEN DESCRIPTION : URINE SPECIAL REQUESTS : NONE Reflexed from [id number] REPORT STATUS : PRELIMINARY REPORT Vital Signs Most recent to oldest 1 2 3 [Reference Range]: Height 173 cm 173 cm 173 cm (09/09/19 9:20 PM) (09/09/19 8:26 PM) (09/09/19 6:1 1 PM) Weight 100.1 kg 100.1 kg 100.1 kg (09/09/19 9:20 PM) (09/09/19 8:26 PM) (09/09/19 6:1 1 PM) Oxygen Saturation [94-100 %] 100 % 100 % 100 % (09/09/19:20 PM) (09/09/19 8:26 PM) (09/09/19 6:1 1 PM) Pulse Rate [55-90 bpm] 58 bpm 61 bpm 55 bpm (09/09/19 9:20 PM) (09/09/19 8:26 PM) (09/09/19 6:1 1 PM) Body Mass Index [18.5-24.99] 33.45 33.45 *>HHI* *>HHI* (09/09/19:20 PM) (09/09/19 8:26 PM) Blood Pressure [90-138/55-84 mm 135/84 mm Hg 122/71 mm Hg 124/58 mm Hg Hg] (09/09/19 9:20 PM) (09/09/19 8:26 PM) (09/09/19 6:1 1 PM) Respiratory Rate [16-30 br/min] 17 br/min 17 br/min 18 br/min (09/09/19:20 PM) (09/09/19 8:26 PM) (09/09/19 6:1 1 PM) Temperature [96.8-100.4 DegF] 98.4 DegF (09/09/19 6:11 PM) Mode of Delivery (Oxygen) Room air (09/09/19 6:11 PM) Blood pressure sites Arm, right (09/09/19 6:11 PM) Temperature Route Oral (09/09/19 6:11 PM) Dry Weight 100.1 kg 100.1 kg 100.1 kg (09/09/19:20 PM) (09/09/19 8:26 PM) (09/09/19 6:1 1 PM) Weight Obtained Via Standing scale (09/09/19 6:11 PM) Dry Weight Obtained Via Standing scale (09/09/19 6:11 PM) Social History Social History Type Response Smoking Status Former smoker, quit more manasa n 30 days ago; Other: quit yesterday; entered on: 08/13/19 Sex
--- OUTSIDE RECORDS SUMMARY | 2022-08-29 14:21 | XMS_ITS | Continuity of Care Document ---
:1995 Author Organization [facility] Address [address] [place] [address]- Care Team Providers Name Role Phone Not on Staff, PCP Primary Care Physician Unavailable Encounter 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
--- OUTSIDE RECORDS SUMMARY | 2022-08-29 14:21 | XMS_ITS | Continuity of Care Document ---
:1995 Author Organization [facility] Address [address] [place] [address]- Care Team Providers Name Role Phone Not on Staff, PCP Primary Care Physician Unavailable Encounter [facility] Date(s): 01/30/22 - 03/10/[address] [address]- Attending Physician: Not on Staff, Attending MD Allergies, Adverse Reactions, Alerts No Known Allergies [...]
--- OUTSIDE RECORDS SUMMARY | 2022-08-29 14:21 | XMS_ITS | Continuity of Care Document ---
:1995 Author Organization [facility] Address [address] [place] [address]- Care Team Providers Name Role Phone Not on Staff, PCP Primary Care Physician Unavailable Encounter [facility] Date(s): 05/27/21 - 06/26/[address] [address]- Allergies, Adverse Reactions, Alerts Substance Reaction Severity [...]
--- OUTSIDE RECORDS SUMMARY | 2022-08-29 14:21 | XMS_ITS | Continuity of Care Document ---
:1995 Author Organization [facility] ic Address [address] [place] [address]- Care Team Providers Name Role Phone Not on Staff, PCP Primary Care Physician Unavailable Encounter [facility] Date(s): 11/13/19 - 11/20/[address] [address]- [facility] Attending Physician: Glenda Foote MD Referring Physician: Anita Romero MD Allergies, Adverse Reactions, Alerts Substance Reaction Severity Status NKA Active Immunizations Given and Recorded Vaccine Date Status Refusal Reason tetanus/diphtheria/pertussis, acel(Tdap) 12/27/18 Given Influenza Virus Vaccine (oldterm) 06/19/17 Recorded Medications aspirin 81 mg oral tablet 2 tablet = 162 mg, By Mouth, Daily, # 90 tablet, 3 Refills, Maintenance, 10/16/19 15:44:00 EDT, Tablet, [facility]/pharmacy #1230, 173, cm, 10/16/19 14:43:00 EDT, Height, 100.7, kg, 09/30/19 14:47:00 EDT, DryWeight Start Date: 10/16/19 Status: OrderedColace sodium 100 mg oral capsule 100 mg, 1, capsule, By Mouth, 2 times a day, PRN, # 60 capsule, Refills 0, Tot. Refills 0, Maintenance, for constipation, 11/13/19 14:20:00 EDT, Route to Pharmacy Electronically, [facility]/pharmacy #1230, 173, cm, 11/13/19 14:01:00 EDT, Height, 100.7, kg, 0... Start Date: 11/13/19 Status: Ordereddoxylamine 25 mg oral tablet 1 tablet = 25 mg, By Mouth, Daily at bedtime, PRN Vomiting, # 32 tablet, 0 Refills, Maintenance, 10/16/19 15:43:00 EDT, Tablet, [facility]/pharmacy #1230, 173, cm, 10/16/19 14:43:00 EDT, Height, 100.7, kg, 09/30/19 14:47:00 EDT, Dry Weight Start Date: 10/16/19 Status: Orderedferrous sulfate 325 mg oral enteric coated tablet 325 mg, 1, tablet, By Mouth, Daily, # 90 tablet, Refills 0, Tot. Refills 0, Maintenance, 10/16/19 15:44:00 EDT, [id number], cm, 10/16/19 14:43:00 EDT, Height, 100.7, kg, 09/30/19 14:47:00 EDT, Dry Weight Start Date: 10/16/19 Status: OrderedNicoderm C-Q 7 mg/24 hr transdermal film, extended release 1 patch, Topically, Daily, # 30 patch, 0 Refills, Maintenance, 10/16/19 15:39:00 EDT, Patch, [facility]/pharmacy #1230, 173, cm, 10/16/19 14:43:00 EDT, Height, 100.7, kg, 09/30/19 14:47:00 EDT, Dry Weight Start Date: 10/16/19 Status: OrderedPrenatal Multivitamins with Folic Acid 1 mg oral tablet 1 tablet, By Mouth, Daily, Can be substituted by any PNV covered by her insurance; Take one tablet daily, # 90 tablet, 2 Refills, Maintenance, 11/13/19 14:52:00 EDT, Tablet, [facility]/pharmacy #1230, 1 tablet By Mouth Daily,Instr:Can be substituted by any P... Start Date: 11/13/19 Status: OrderedTylenol Extra Strength By Mouth, Every 6 hours, 0 Refills, Maintenance, 08/13/19 21:32:00 EST Start Date: 08/13/19 Status: OrderedVitamin B6 50 mg oral tablet 1, tablet, By Mouth, Daily, # 30 tablet, Refills 0, Tot. Refills 0, Acute, 11/18/19 10:05:00 EDT, Route to Pharmacy Electronically, [facility], 173, cm, 11/13/19 14:01:00 EDT, Height, 100.7, kg, 09/30/19 14:47:00 EDT, Dry Weight Start Date: 11/18/19 Status: OrderedZofran ODT 4 mg oral tablet, disintegrating 1 tablet, By Mouth, Once, PRN as needed for nausea/vomiting, # 5 tablet, 0 Refills, Soft Stop, 10/16/19 15:39:00 EDT, DIS Tablet, [facility], 173, cm, 10/16/19 14:43:00 [...] Chronic hypertension(Confirmed)4, 5 Active Obesity(Confirmed) Active 1PP [id number] to previous medical records thin uterine wall at c/s scar 3CIN O2speemoh from 9370-5875; resolved with lifestyle changes and loss of 80 onecoo6ctm on meds currently Vital Signs Most recent to oldest [Reference Range]: 1 Height 173 cm (11/13/19 2:01 PM) Social History Social History Type Response Tobacco Use: 4 or less cigarettes(le ss than 1/4 pack)/day in last 30 days. Other: quit yesterday. Sex Female
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
[2022-08-29 14:23] LABS: Basophils Absolute Auto 0.1 X10*3/uL (0.0-0.2); Basophils Percent Auto 0.5 % (0-2); Eosinophils Absolute Auto 0.2 X10*3/uL (0.0-0.4); Eosinophils Percent Auto 1.9 % (0-4); Hematocrit 34.3 % (37.0-47.0); Hemoglobin 10.6 g/dl (12.0-16.0); Imm Gran Abs Auto 0.04 X10*3/uL (0.00-0.03); Imm Gran Pct Auto 0.4 % (0.0-0.4); Lymphocytes Absolute Auto 1.8 X10*3/uL (1.2-4.9); Lymphocytes Percent Auto 16.2 % (20-40); Mean Corpuscular HGB Conc 30.9 g/dl (31.0-35.0); Mean Corpuscular Volume 84.3 fL (80.0-98.0); Mean Platelet Volume 10.9 fL (9.4-12.3); Monocytes Absolute Auto 1.2 X10*3/uL (0.1-1.2); Monocytes Percent Auto 10.5 % (2-11); Neutrophils Absolute Auto 7.7 x10*3/uL (2.0-8.3); Neutrophils Percent Auto 70.5 % (45-73); Platelet Count 342 X10*3/uL (160-400); Red Blood Count 4.07 X10*6/uL (4.20-5.50); Red Cell Distribution Width 15.9 % (11.0-16.0); White Blood Count 10.9 X10*3/uL (4.8-10.8)
[2022-08-29 14:42] LABS: Alanine Aminotransferase 117 U/L (0-31); Albumin Level 3.4 g/dL (3.5-5.0); Alkaline Phosphatase 145 U/L (39-117); Anion Gap 13 (12-20); Aspartate Amino Transferase 66 U/L (5-31); Bilirubin Total 0.3 mg/dL (0.0-1.0); Blood Urea Nitrogen 12 mg/dL (9-16); Calcium 9.1 mg/dL (8.4-10.2); Carbon Dioxide 28 mmol/L (22-29); Chloride 104 mmol/L (96-108); Creatinine Clr Calc Pharmacy 126.9; Estimated Glomerular Filt Rate > 60; Glucose Random 89 mg/dL (60-115); Lipase 14 U/L (8-78); Potassium 4.6 mmol/L (3.3-5.1); Sodium 140 mmol/L (135-145); Total Protein 6.2 g/dL (6.5-8.0)
== END 2022-08-29 16:04 | disposition home or self-care (01) ==
PROVIDERS: Nurse Practitioner Family; Emergency Provider Emergency Medicine
DX: Z48.00 Encounter for change or removal of nonsurgical wound dressing (principal); Z79.899 Other long term (current) drug therapy
CPT/HCPCS: 36415; 80053; 83690; 85025; 99282; 99283

== ENCOUNTER 2024-02-06 12:47 | Outpatient (REF) | payer MEDICARE, SELFPAY ==
[2024-02-06 16:08] LABS: Hematocrit 41.7 % (37.0-47.0); Mean Corpuscular HGB Conc 31.2 g/dl (31.0-35.0); Mean Corpuscular Hemoglobin 25.6 pg (27.0-33.0); Mean Corpuscular Volume 82.2 fL (80.0-98.0); Mean Platelet Volume 12.5 fL (9.4-12.3); Platelet Count 213 X10*3/uL (160-400); Red Blood Count 5.07 X10*6/uL (4.20-5.50); Red Cell Distribution Width 17.1 % (11.0-16.0); White Blood Count 8.1 X10*3/uL (4.8-10.8)
[2024-02-06 16:16] LABS: Estimated Average Glucose 97 mg/dL
[2024-02-06 16:25] LABS: Alanine Aminotransferase 22 U/L (0-31); Albumin Level 3.7 g/dL (3.5-5.0); Alkaline Phosphatase 73 U/L (39-117); Anion Gap 12 (12-20); Aspartate Amino Transferase 24 U/L (5-31); Bilirubin Direct 0.2 mg/dL (0.0-0.5); Bilirubin Total 0.4 mg/dL (0.0-1.0); Blood Urea Nitrogen 12 mg/dL (9-16); Calcium 9.5 mg/dL (8.4-10.2); Carbon Dioxide 23 mmol/L (22-29); Chloride 107 mmol/L (96-108); Cholesterol 147 mg/dL (<200); Estimated Glomerular Filt Rate > 60; Glucose Random 75 mg/dL (60-115); HDL Cholesterol 45 mg/dL (>40); LDL Cholesterol Calculated 83 mg/dL (<100); Potassium 4.2 mmol/L (3.3-5.1); Sodium 138 mmol/L (135-145); Total Protein 6.5 g/dL (6.5-8.0); Triglycerides 98 mg/dL (<150)
[2024-02-06 16:46] LABS: Free T4 (Free Thyroxine) 0.99 ng/dL (0.71-1.85); Thyroid Stimulating Hormone 0.91 uIU/mL (0.32-4.0); Vitamin D 25-OH Total 50.9 ng/mL (>30)
[2024-02-08 06:09] LABS: Triiodothyronine T3 Total 114 ng/dL (76-181)
== END 2024-02-06 12:48 | disposition home or self-care (01) ==
LOC: HO.HHCL 12:47
PROVIDERS: Visit Provider Family Medicine
DX: H05.20 Unspecified exophthalmos (principal); Z13.1 Encounter for screening for diabetes mellitus; Z13.89 Encounter for screening for other disorder
CPT/HCPCS: 36415; 80048; 80061; 80076; 82306; 83036; 84439; 84443; 84480; 85027

== ENCOUNTER 2024-03-20 10:35 | Emergency (ER) | payer MEDICARE, SELFPAY ==
[2024-03-20 10:52] VITALS: BP 137/75; PULSE 108; RESP 18; TEMP 37.7; O2SAT 100; BMI 33.0
[2024-03-20 15:06] LABS: Influenza A PCR NEGATIVE (Negative); Influenza B PCR NEGATIVE (Negative); Resp Syncy Virus RNA Qual PCR NEGATIVE (Negative); SARS COV2 PCR INHOUSE NEGATIVE (Negative)
[2024-03-20 15:35] VITALS: BP 133/76; PULSE 103; RESP 18; TEMP 37.2; O2SAT 100
--- NOTE | 2024-03-20 15:47 | ED_ITS ---
HPI - General Adult General Chief complaint: Fever Stated complaint: Fever, vomiting Time Seen by Provider: 03/20/24 15:06 Source: patient and RN notes reviewed Mode of arrival: ambulatory Limitations: no limitations History of Present Illness ED Provider: Crystal Johnson PA-C [facility] narrative: This is a 28-year-old female, with no known medical problems, who presents emergency department with complaints of sore throat, body aches, fevers, diarrhea x2 days. Patient states that she has not been able to keep anything down due to the nausea and vomiting. She also states that she has had some difficulties with swallowing secondary to pain. She states that she is able to drink fluids without difficulty. Reports that her highest fever was 102. She has not taken any ibuprofen or Tylenol today. Denies any sick contacts. Denies any congestion, cough, chest pain or shortness of breath. No Complaints or concerns at this time. MD complaint: Sore throat, body aches, fevers Onset (ago): day(s) Pain Consistency: constant Relieving factors: none Exacerbating factors: none Associated symptoms: denies other symptoms Treatments prior to arrival: none Related Data Previous Rx's ?Medication ?Instructions ?Recorded omeprazole magnesium 20 mg 20 mg PO BID 10 days #20 tabs 09/15/21 tablet,delayed release (Prilosec OTC) doxycycline monohydrate 100 mg 100 mg PO BID #14 tabs 01/11/22 tablet amoxicillin 875 mg-potassium 1 tab PO BID 10 days #20 tabs 03/20/24 clavulanate 125 mg tablet Allergies Allergy/AdvReac Type Severity Reaction Status Date / Time No Known Allergies Allergy Verified 03/20/24 10:54 [No Known Allergies*] Review of Systems 2 Review of Systems: Yes all other systems are reviewed and are negative Constitutional: Constitutional: Reports as per [facility] Social History Social History Advance Directives: No Advance Directives Information Provided: No Do you have a plan to hurt others: No Plan Physical Exam ED Vital Signs: Vital Signs - 24 hr 03/20/24 10:52 03/20/24 15:35 03/20/24 18:38 Temperature 99.8 F 98.9 F 98.4 F Pulse Rate 108 H 103 H 112 H Respiratory Rate 18 18 18 Blood Pressure 137/75 133/76 137/83 Pulse Oximetry 100 100 98 Oxygen Delivery Method Room Air Room Air Room Air 03/20/24 19:04 Temperature 98.4 F Pulse Rate 112 H Respiratory Rate 18 Blood Pressure 137/83 Pulse Oximetry 98 Oxygen Delivery Method Room Air BMI result Body Mass Index 33.0 Const General: cooperative, comfortable and no acute distress Orientation/consciousness: patient oriented x3 Limitations: no limitations HENMT Other: Bilateral tonsillar hypertrophy with exudates. Uvula is midline. No trismus, drooling or dysphonia. Head: Yes normal to inspection, Yes normocephalic and Yes atraumatic Ears: hearing grossly normal bilaterally and TM's normal bilaterally General nose exam: Normal external nose present Face and sinus: Yes normal facial exam Mouth: Normal oral and palatal mucosa present, oropharynx normal and moist mucous membranes Throat: Yes posterior oropharynx normal Eyes General: appearance normal, both eyes and all related structures Eyelids: Yes eyelids normal Conjunctivae: conjunctivae normal Sclerae: sclerae normal Pupils: Equal, round and reactive pupils present EOM: EOMs intact bilaterally Neck Neck: Yes normal visual inspection, Yes full ROM and Yes no lymphadenopathy Lymphatic: no lymphadenopathy noted Chest Chest palpation & inspection: normal inspection of the chest Resp Effort & Inspection: normal respiratory effort and able to speak in complete sentences Auscultation: clear to auscultation bilaterally, no crackles, no rales, no rhonchi and no wheezes Cardio Rate: regular rate Rhythm: regular rhythm Heart sounds: S1 normal heart sound present and S2 normal heart sound present GI Other: Abdomen is soft and nontender Inspection: Yes normal to inspection Skin General skin exam: no rashes or lesions noted Trauma: no lacerations or abrasions Wounds: no wounds Neuro General: patient oriented x3 and moves all extremities Cranial nerves: Yes Equal, round and reactive pupils present Extrem General: Yes normal to inspection Right upper extremity: normal to inspection Left upper extremity: normal to inspection Right lower extremity: normal to inspection Left lower extremity: normal to inspection Course Reevaluation(s) Reevaluation #1: Blood work returns, she has leukocytosis at 17.5 with left shift, chemistry within normal limits. She tested negative for mono, flu, RSV, COVID and strep. Given findings, I discussed with patient if there is any concerns for any gonococcal pharyngitis, she reports that this is not possible. Given appearance of throat, as well as leukocytosis, will treat as a tonsillitis. Lactic and blood cultures were ordered. Time: 17:30 Reevaluation #2: Lactic is negative. Patient feeling much better, able to swallow without difficulty. Patient's symptoms consistent with tonsillitis, treated with Augmentin, given strict return precautions. She understands and agrees with plan. Patient stable for discharge. Time: 18:54 Medications Administered Generic Name Dose Route Start Last Admin Trade Name Freq PRN Reason Stop Dose Admin Sodium Chloride 1,000 mls @ 999 mls/hr 03/20/24 18:20 03/20/24 18:29 Ns IV 03/20/24 19:20 999 mls/hr .Q1H1M ONE Administration Discontinued Medications Generic Name Dose Route Start Last Admin Trade Name Freq PRN Reason Stop Dose Admin Amoxicillin/Clavulanate Potassium 875 mg 03/20/24 18:13 03/20/24 18:43 Amoxicillin/Potassium Clav 875 Mg Tablet PO 03/20/24 18:14 Not Given ONCE ONE Amoxicillin/Clavulanate Potassium 875 mg 03/20/24 18:30 03/20/24 18:31 Amoxicillin/Potassium Clav 875 Mg Tablet PO 03/20/24 18:31 875 mg ONCE ONE Administration Dexamethasone Sodium Phosphate 10 mg 03/20/24 16:44 03/20/24 16:47 Dexamethasone Sod Phosphate 10 Mg/Ml Vial PO 03/20/24 16:45 10 mg ONCE ONE Administration Sodium Chloride 1,000 mls @ 999 mls/hr 03/20/24 15:43 03/20/24 18:00 Ns IV 03/20/24 16:43 Infused .Q1H1M ONE Infusion Ondansetron HCl 4 mg 03/20/24 15:48 03/20/24 16:09 Ondansetron Hcl 4 Mg/2 Ml Vial IVPUSH 03/20/24 15:49 4 mg ONCE ONE Administration Medical Decision Making Medical Decision Making MDM Narrative: This is a 28-year-old female who presents emergency department with complaints of sore throat, diarrhea, body aches, fevers, and abdominal pain for the last 2 days. On arrival, patient afebrile, speaking in full sentences. Bilateral tonsils are erythematous and edematous with exudates noted. Uvula is midline. She states that she has been unable to tolerate p.o. secondary to nausea, and sore throat. Given this, will medicate with IV fluids, IV Zofran. Will swab for strep throat. Also will obtain labs, and mono screen. Abdomen is soft, nontender. Differential Diagnosis Differential Diagnoses: The differential diagnosis associated with the presentation includes [employer], strep pharyngitis, gastritis, gastroenteritis, electrolyte derangement, mono Admission/Observation Consideration of admission/observation: Escalation of care including admission/observation considered Lab Data MDM Lab Attestation statement: I reviewed the patient's lab results. 03/20/24 16:06 03/20/24 16:06 Labs: Lab Results 03/20/24 03/20/24 03/20/24 Range/Units 14:21 15:46 16:06 WBC 17.5 H (4.8-10.8) X10*3/uL RBC 4.77 (4.20-5.50) X10*6/uL Hgb 12.8 (12.0-16.0) g/dl Hct 38.4 (37.0-47.0) % MCV 80.5 (80.0-98.0) fL MCH 26.8 L (27.0-33.0) pg MCHC 33.3 (31.0-35.0) g/dl RDW 15.9 (11.0-16.0) % Plt Count 205 (160-400) X10*3/uL MPV 11.3 (9.4-12.3) fL Immature Gran % (Auto) Cancelled Neut % (Auto) Cancelled Lymph % (Auto) Cancelled [place] % (Auto) Cancelled Eos % (Auto) Cancelled Baso % (Auto) Cancelled Lymph # (Auto) Cancelled [place] # (Auto) Cancelled Eos # (Auto) Cancelled Baso # (Auto) Cancelled Abs Immat Gran (auto) Cancelled Absolute Neuts (auto) Cancelled Absolute Nucleated RBC 0.000 (0.0-0.012) X10*3/uL Nucleated RBC % (auto) 0.0 (0.0-0.2) /100WBC Neutrophils % (Manual) 84 H (45-73) % Band Neutrophils % 0 L (3-5) % Lymphocytes % (Manual) 6 L (20-40) % Monocytes % (Manual) 8 (2-11) % Basophils % (Manual) 2 (0-2) % Abs Neuts (Manual) 14.7 H (2.0-8.3) X10*3/uL Lymphocytes # (Manual) 1.1 L (1.2-4.9) X10*3/uL Monocytes # (Manual) 1.4 H (0.1-1.2) X10*3/uL Basophils # (Manual) 0.4 H (0.0-0.2) X10*3/uL Platelet Estimate NORMAL (NORMAL) Plt Morphology Comment NORMAL RBC Morphology NORMAL Sodium 137 (135-145) mmol/L Potassium 3.9 (3.3-5.1) mmol/L Chloride 105 (96-108) mmol/L Carbon Dioxide 26 (22-29) mmol/L Anion Gap 10 L (12-20) BUN 10 (9-16) mg/dL Creatinine 0.87 (0.5-1.4) mg/dL Estim Creat Clear Calc 112.1 Estimated GFR > 60 Random Glucose 90 (60-115) mg/dL Lactic Acid (0.5-2.0) mmol/L Calcium 9.2 (8.4-10.2) mg/dL Total Bilirubin 0.3 (0.0-1.0) mg/dL AST 17 (5-31) U/L ALT 18 (0-31) U/L Alkaline Phosphatase 80 (39-117) U/L Total Protein 6.7 (6.5-8.0) g/dL Albumin 3.6 (3.5-5.0) g/dL Beta HCG, Quant < 2 mIU/mL Monoscreen Negative (Negative) Influenza Type A (PCR) NEGATIVE (Negative) Influenza Type B (PCR) NEGATIVE (Negative) RSV RNA Qual (PCR) NEGATIVE (Negative) SARS-CoV-2 RNA (RT-PCR) NEGATIVE (Negative) S. pyogenes GrpA YISSEL Invalid (Negative) 03/20/24 03/20/24 Range/Units 16:26 18:00 WBC (4.8-10.8) X10*3/uL RBC (4.20-5.50) X10*6/uL Hgb (12.0-16.0) g/dl Hct (37.0-47.0) % MCV (80.0-98.0) fL MCH (27.0-33.0) pg MCHC (31.0-35.0) g/dl RDW (11.0-16.0) % Plt Count (160-400) X10*3/uL MPV (9.4-12.3) fL Immature Gran % (Auto) Neut % (Auto) Lymph % (Auto) [place] % (Auto) Eos % (Auto) Baso % (Auto) Lymph # (Auto) [place] # (Auto) Eos # (Auto) Baso # (Auto) Abs Immat Gran (auto) Absolute Neuts (auto) Absolute Nucleated RBC (0.0-0.012) X10*3/uL Nucleated RBC % (auto) (0.0-0.2) /100WBC Neutrophils % (Manual) (45-73) % Band Neutrophils % (3-5) % Lymphocytes % (Manual) (20-40) % Monocytes % (Manual) (2-11) % Basophils % (Manual) (0-2) % Abs Neuts (Manual) (2.0-8.3) X10*3/uL Lymphocytes # (Manual) (1.2-4.9) X10*3/uL Monocytes # (Manual) (0.1-1.2) X10*3/uL Basophils # (Manual) (0.0-0.2) X10*3/uL Platelet Estimate (NORMAL) Plt Morphology Comment RBC Morphology Sodium (135-145) mmol/L Potassium (3.3-5.1) mmol/L Chloride (96-108) mmol/L Carbon Dioxide (22-29) mmol/L Anion Gap (12-20) BUN (9-16) mg/dL Creatinine (0.5-1.4) mg/dL Estim Creat Clear Calc Estimated GFR Random Glucose (60-115) mg/dL Lactic Acid 1.0 (0.5-2.0) mmol/L Calcium (8.4-10.2) mg/dL Total Bilirubin (0.0-1.0) mg/dL AST (5-31) U/L ALT (0-31) U/L Alkaline Phosphatase (39-117) U/L Total Protein (6.5-8.0) g/dL Albumin (3.5-5.0) g/dL Beta HCG, Quant mIU/mL Monoscreen (Negative) Influenza Type A (PCR) (Negative) Influenza Type B (PCR) (Negative) RSV RNA Qual (PCR) (Negative) SARS-CoV-2 RNA (RT-PCR) (Negative) S. pyogenes GrpA YISSEL Negative (Negative) Radiology Impression Discussion of test interpretation with radiology: I have reviewed the radiologist's reading. External Record Review External record reviewed: Inpatient record, Office record, Outpatient record, Prior outpatient labs, Prior outpatient radiology, Primary care record and Outside ED record Discharge Plan Discharge Clinical Impression: Acute tonsillitis Patient Disposition: Home, Self-Care Instructions: Tonsillitis (ED) Additional Instructions: Were seen in the emergency department due to fevers, body aches, and sore throat. You tested negative for COVID, flu, RSV, and strep throat. You also tested negative for mono. Your blood work indicated a infection. We are aware that you have a throat infection therefore that is what we are treating today. You received your 1st dose of antibiotic in the department today. Please continue antibiotic as prescribed. Please throw away your toothbrush after being on the antibiotics for 48 hours. Drink plenty of fluids and get plenty of rest. Saltwater gargles, popsicles can also help with your symptoms. Please be advised that your symptoms are contagious, avoid sharing foods or drinks. If any new or worsening symptoms occur including but not limited to worsening throat pain, inability to swallow, please return for re-evaluation Prescriptions: New amoxicillin-pot clavulanate 875-125 mg tablet 1 tab PO BID 10 Days Qty: 20 0RF No Action omeprazole magnesium [Prilosec OTC] 20 mg tablet,delayed release (DR/EC) 20 mg PO BID 10 Days Qty: 20 0RF doxycycline monohydrate 100 mg tablet 100 mg PO BID Qty: 14 0RF Stand Alone Forms: Work/School Release Interventions: ED Discharge Assessment Last Done: 03/20/24 19:04 Discharge Date/Time: 03/20/24 19:19 Print Language: Lao
[2024-03-20] MEDS: ondansetron HCL 4 MG/2 ML VIAL IVPUSH (16:09)
[2024-03-20] MEDS: 0.9 % Sodium Chloride 1,000 ML 999 ML IV ×2 (16:09→18:29)
[2024-03-20 16:13] LABS: IDNOW Serial# 58CA691E
[2024-03-20 16:14] LABS: Strep A Nucleic Acid Invalid (Negative)
[2024-03-20 16:16] LABS: Hematocrit 38.4 % (37.0-47.0); Hemoglobin 12.8 g/dl (12.0-16.0); Mean Corpuscular HGB Conc 33.3 g/dl (31.0-35.0); Mean Corpuscular Hemoglobin 26.8 pg (27.0-33.0); Mean Corpuscular Volume 80.5 fL (80.0-98.0); Mean Platelet Volume 11.3 fL (9.4-12.3); Platelet Count 205 X10*3/uL (160-400); Red Blood Count 4.77 X10*6/uL (4.20-5.50); Red Cell Distribution Width 15.9 % (11.0-16.0)
[2024-03-20 16:19] LABS: WBC ABN SCTR FOR CBC 1
[2024-03-20 16:30] LABS: Alanine Aminotransferase 18 U/L (0-31); Albumin Level 3.6 g/dL (3.5-5.0); Alkaline Phosphatase 80 U/L (39-117); Anion Gap 10 (12-20); Aspartate Amino Transferase 17 U/L (5-31); Bilirubin Total 0.3 mg/dL (0.0-1.0); Blood Urea Nitrogen 10 mg/dL (9-16); Calcium 9.2 mg/dL (8.4-10.2); Carbon Dioxide 26 mmol/L (22-29); Chloride 105 mmol/L (96-108); Creatinine Clr Calc Pharmacy 112.1; Estimated Glomerular Filt Rate > 60; Glucose Random 90 mg/dL (60-115); Potassium 3.9 mmol/L (3.3-5.1); Sodium 137 mmol/L (135-145); Total Protein 6.7 g/dL (6.5-8.0)
[2024-03-20 16:32] LABS: Monotest Negative (Negative)
[2024-03-20 16:44] LABS: HCG Quantitative < 2 mIU/mL
[2024-03-20] MEDS: dexAMETHasone sod phosphate 10 MG/ML VIAL PO (16:47)
[2024-03-20 17:07] LABS: Basophils Percent Manual 2 % (0-2); Lymphocytes Percent Manual 6 % (20-40); Monocytes Percent Manual 8 % (2-11); Neutrophils Percent Manual 84 % (45-73)
[2024-03-20 17:10] LABS: Band Neutrophils Percent 0 % (3-5); Platelet Estimate NORMAL (NORMAL); RBC Morphology NORMAL
[2024-03-20 17:11] LABS: Platelet Morphology Comment NORMAL
[2024-03-20 17:12] LABS: Basophils Abs Manual 0.4 X10*3/uL (0.0-0.2); Lymphocytes Absolute Manual 1.1 X10*3/uL (1.2-4.9); Monocytes Absolute Manual 1.4 X10*3/uL (0.1-1.2); Neutrophils Absolute Manual 14.7 X10*3/uL (2.0-8.3); White Blood Count 17.5 X10*3/uL (4.8-10.8)
[2024-03-20 18:01] LABS: IDNOW Serial# 6674DD1D; Strep A Nucleic Acid Negative (Negative)
--- NOTE | 2024-03-20 18:25 | PC.NURSE ---
Unable to acknowledge Augmentin PO order, called pharmacy, placed an identical order so order can be acknowledged and given. Original order to be canceled, patient to get 1x Augmentin dose.
[2024-03-20] MEDS: Amoxicillin/Potassium Clav 875 MG TABLET PO (18:31)
[2024-03-20 18:38] VITALS: BP 137/83; PULSE 112; RESP 18; TEMP 36.9; O2SAT 98
[2024-03-20 19:04] VITALS: BP 137/83; PULSE 112; RESP 18; TEMP 36.9; O2SAT 98
== END 2024-03-20 19:19 | disposition home or self-care (01) ==
PROVIDERS: Emergency Medicine; Physician Assistant Medical; Emergency Provider Emergency Medicine
DX: J03.90 Acute tonsillitis, unspecified (principal); R50.9 Fever, unspecified; R11.2 Nausea with vomiting, unspecified; M79.10 Myalgia, unspecified site; R19.7 Diarrhea, unspecified; R10.2 Pelvic and perineal pain; Z79.899 Other long term (current) drug therapy; Z03.818 Encounter for observation for suspected exposure to other biological agents ruled out
CPT/HCPCS: 0241U; 36415; 80053; 83605; 84702; 85007; 85027; 86308; 87040; 87651; 96361; 96374; 99284; J1100; J2405

== ENCOUNTER 2024-06-30 13:58 | Outpatient (REF) | payer MEDICARE, SELFPAY ==
[2024-07-01 08:25] LABS: HIV AB/AG Nonreactive (Nonreactive); HIV Num 1 0.05 S/CO (0.00-0.99)
[2024-07-01 08:42] LABS: Syphilis Screen Nonreactive (Nonreactive)
== END 2024-06-30 13:59 | disposition home or self-care (01) ==
LOC: HO.HHCL 13:58
PROVIDERS: Visit Provider Registered Nurse
DX: Z11.4 Encounter for screening for human immunodeficiency virus [HIV] (principal); Z20.2 Contact with and (suspected) exposure to infections with a predominantly sexual mode of transmission
CPT/HCPCS: 36415; 86780; 87389

== ENCOUNTER 2024-06-30 17:50 | Outpatient (REF) | payer MEDICARE, SELFPAY ==
[2024-07-01 11:16] LABS: HPV 16,18/45 See PAP report
[2024-07-04 20:53] LABS: C. trachomatis RNA TMA NOT DETECTED (NOT DETECTED); N. gonorrhoeae RNA TMA NOT DETECTED (NOT DETECTED)
[2024-07-04 20:58] LABS: Trichomonas (NAAT) NOT DETECTED (NOT DETECTED)
== END 2024-06-30 17:51 | disposition home or self-care (01) ==
LOC: HO.HHCLNP 17:50
PROVIDERS: Visit Provider Registered Nurse
DX: Z12.4 Encounter for screening for malignant neoplasm of cervix (principal); Z11.51 Encounter for screening for human papillomavirus (HPV); Z20.2 Contact with and (suspected) exposure to infections with a predominantly sexual mode of transmission
CPT/HCPCS: 87491; 87591; 87624; 87661; 88175

== ENCOUNTER → 2025-01-28 08:07 | Outpatient (BNV) | payer MEDICARE, MEDICAID, SELFPAY | PROVIDERS: Emergency Provider Emergency Medicine; Visit Provider Radiology Diagnostic Radiology | DX: M25.562 Pain in left knee (principal) | CPT/HCPCS: 73564 ==

== ENCOUNTER 2025-01-28 08:50 | Emergency (ER) | payer MEDICARE, MEDICAID, SELFPAY ==
--- NOTE | ~2025-01-28 | XR_ITS ---
EXAMINATION: XR KNEE, LEFT CLINICAL INFORMATION: pain COMPARISON: None available. TECHNIQUE: AP oblique and lateral views, of the left knee. FINDINGS: No acute cortical disruption or malalignment. No suprapatellar bursa joint effusion. Mild joint space narrowing involving the medial compartment. No lytic or blastic lesions. No subcutaneous emphysema. No metallic or radiopaque foreign body. XR/XR knee LT 4V IMPRESSION: Mild medial compartment osteoarthrosis without acute fracture or dislocation. Electronically signed by: Rodrigo Carson MD 01/28/2025 09:11 AM EDT
[2025-01-28 08:52] VITALS: BP 106/63; PULSE 68; RESP 16; TEMP 37; O2SAT 97; BMI 32.2
--- OUTSIDE RECORDS SUMMARY | 2025-01-28 09:25 | XMS_ITS | Encounter Summary ---
Author Organization [employer] Address [address] [facility] [address] [place] [address] Care Team Providers Care Stain Maker Name Role Phone Jill Ram DEFENCE INTELLIGENCE ANALYST Primary Care Provider [phone] Kamar Bowens DEFENCE INTELLIGENCE ANALYST Unavailable Unavailable Encounter Details Date Type Department Care Team (Late st Contact Info) Description 01/28/2025 Orders Only [facility] External Provider, [facility] Social History Tobacco Use Types Packs/Day Years Used Date Smoking Tobacco: Former Cigarettes 0.5 8 Smokeless Tobacco: Never Alcohol Use Standard Drinks/Week Comments Never 0 (1 standard drink = 0.6 oz pur e alcohol) Depression Answer Date Recorded Patient Health Questionnaire-9 Score 17 04/16/2024 Patient Health Questionnaire-9 Score 17 04/16/2024 Last PHQ-9: Questionnaire Data Not on file 0 04/16/2024 Housing Stability Answer Date Recorded What is your housing situation today? I have salome page 04/16/[address] you li ve. Do you have problems with any of the following? None of the above 04/16/2024 Food Insecurity Answer Date Recorded Within the past 12 months, y ou worried that your food would run out before you got money to buy more: Never True 04/16/2024 Within the past 12 months,th e food you bought just didn't last and you didn't have enough money to get more: Never True Transportation Answer Date Recorded In the past 12 months, has l ack of transportation kept you from medical appts, meetings, work or from getting things needed for daily living? No 04/16/2024 Utilities Answer Date Recorded In the past 12 months, has t he electric, gas, oil or water company threatened to shut off services in your home? No 04/16/2024 Depression Answer Date Recorded Patient Health Questionnaire-2 Score 4 04/16/2024 Internet Access Answer Date Recorded Internet Access Q1 Yes 04/16/2024 Internet Access Q2 Not on file 04/16/2024 Comments Unknown Sex and Gender Information Value Date Recorded Sex Assigned at Female 05/22/2022 10:36 AM EDT Legal Sex Female 10:36 AM EDT Gender Identity Female 05/22/2022 10:36 AM EDT Sexual Orientation Straight 05/22/2022 10 :36 AM EDT documented as of this encounter Plan of Treatment Not on file documented as of this encounter Procedures Procedure Name Priority Date/Time Associated Diagnosis Comments XR KNEE 4+ VIEWS LEFT Routine 01/28/2025 8:07 AM EDT documented in this encounter Results * XR Knee 4+ Views Left (01/28/2025 8:07 AM EDT) Anatomical Region Laterality Modality Lower Extremities, Knee Left [facility] Imaging 01/28/2025 8:07 AM EDT Narrative 01/28/2025 9:14 AM EDT [place] [address] XRay Report Signed Patient: Frank Garza MR# : [id number] : 1995 Acct:[id number] Age/Sex: 29 / F ADM Date: 01/28/25 Loc: HO.ED Attending Dr: Ordering Physician: Generic ED Physician Date of Service: 01/28/25 Procedure(s): XR knee LT 4V Accession Number(s): [id number] cc: Generic ED Physician; [facility] EXAMINATION: XR KNEE, LEFT CLINICAL INFORMATION: pain COMPARISON: None available. TECHNIQUE: AP oblique and lateral views, of the left knee. FINDINGS: No acute cortical disruption or malalignment. No suprapatellar bursa joint effusion. Mild joint space narrowing involving the medial compartment. No lytic or blastic lesions. No subcutaneous emphysema. No metallic or radiopaque foreign body. XR/XR knee LT 4V IMPRESSION: Mild medial compartment osteoarthrosis without acute fracture or dislocation. Electronically signed by: Rodrigo Carson MD 01/28/2025 09:11 AM EDT RP Dictated By: Rodrigo Luna MD Signed By: <Electronically signed by Rodrigo Ordaz MD in [place]> 01/28/25910 DD/ 0807 TD/TT: 01/28/25907 Used Car Salesperson: Procedure Note Donotuseinterpreter, Image - 01/28/2025 [place] [address] XRay Report Signed Patient: Frank GarzaMR# : [id number] : 1995Acct:[id number] Age/Sex: Date: 01/28/25 Loc: .ED Attending Dr: Ordering Physician: Generic ED Physician Date of Service: 01/28/25 Procedure(s): XR knee LT 4V Accession Number(s): [id number] cc: Generic ED Physician; [facility] EXAMINATION: XR KNEE, LEFT CLINICAL INFORMATION: pain COMPARISON: None available. TECHNIQUE: AP oblique and lateral views, of the left knee. FINDINGS: No acute cortical disruption or malalignment. No suprapatellar bursa joint effusion. Mild joint space narrowing involving the medial compartment. No lytic or blastic lesions. No subcutaneous emphysema. No metallic or radiopaque foreign body. XR/XR knee LT 4V IMPRESSION: Mild medial compartment osteoarthrosis without acute fracture or dislocation. Electronically signed by: Rodrigo Carson MD 01/28/2025 09:11 AM EDT RP Dictated By: Rodrigo Luna MD Signed By: <Electronically signed by Rodrigo Ordaz MDin OV> 01/28/25910 DD/ 0807 TD/TT: 01/28/25907 Used Car Salesperson: us [facility] External Provider IMG XR PROCEDURES Final Result documented in this encounter Visit Diagnoses Not on filedocumented in this encounter Additional Health Concerns Assessment Noted Time PHQ-9 Depression Total Score: 17 024 4:32 PM EDT documented as of this encounter Care Teams Stain Maker Relationship Specialty Start Date End Date Jill Ram FNP [address] [place] [address] PCP - General Family Medicine 03/22/22 Kamar Bowens FNP [address] [place] [address] Nurse Practitioner Family Medicine 06/18/23 documented as of this encounter
--- NOTE | 2025-01-28 09:41 | ED_ITS ---
HPI - General Adult General Chief complaint: Extremity Problem Stated complaint: L knee pain no injury Time Seen by Provider: 01/28/25 09:36 Source: patient Mode of arrival: ambulatory Limitations: no limitations History of Present Illness ED Provider: Sharlene Small PA-C HPI narrative: Patient is a 29 year old assigned female at with no reported medical history presenting to the emergency department today with left knee pain. Patient states that she has been having discomfort in her left knee and feels like it goes out towards the side when she walks. Patient states that she has a compression knee sleeve but it doesn't fit well so she needs to find a better fitting one. Patient denies any dizziness, lightheadedness, abdominal pain, nausea, vomiting, fever, chills, blurry vision, double vision, loss of vision, chest pain, difficulty breathing, shortness of breath, back pain, night sweats, pain with urination, increased urinary frequency, increased urinary urgency, blood in her urine or stool, syncope or a near syncopal episode, recent trauma or falls, bowel incontinence, bladder incontinence, or any other complaints at this time. Location: left and lower extremity Relieving factors: immobilization Exacerbating factors: movement Associated symptoms: denies other symptoms Treatments prior to arrival: other (poor fitting knee sleeve) Related Data Previous Rx's ?Medication ?Instructions ?Recorded omeprazole magnesium 20 mg 20 mg PO BID 10 days #20 ta bs 09/15/21 tablet,delayed release (Prilosec OTC) doxycycline monohydrate 100 mg 100 mg PO BID #14 tabs 01/11/22 tablet amoxicillin 875 mg-potassium 1 tab PO BID 10 days #20 tabs 03/20/24 clavulanate 125 mg tablet Allergies Allergy/AdvReac Type Severity Reaction Status Date / Time No Known Allergies (No Known Allergy Verified 01/28/25 08:57 Allergies*) Review of Systems Constitutional: Constitutional: Reports no additional constitutional complaints, Denies chills, Denies fever(s) and Denies night sweats Eyes: Eyes: Reports no additional eye complaints, Denies blurry vision, Denies change in vision, Denies diplopia, Denies eye discharge, Denies loss of vision and Denies eye pain ENT: Denies dizziness Cardiovascular: Cardiovascular: Reports no additional cardiovascular complaints, Denies chest pain, Denies lightheadedness, Denies Loss of Consciousness and Denies dyspnea Respiratory: Respiratory: Reports no additional respiratory complaints and Denies dyspnea Gastrointestinal: Gastrointestinal: Reports no additional gastrointestinal complaints, Denies abdominal pain, Denies melena, Denies hematochezia, Denies change in bowel habits and Denies change in stool character Genitourinary: Genitourinary: Denies hematuria, Denies urinary frequency, Denies dysuria, Denies urinary incontinence, Denies urinary hesitancy and Denies urinary urgency Musculoskeletal: Musculoskeletal: Reports no additional musculoskeletal complaints, Denies numbness and Denies tingling Comments: left knee pain Neurologic: Denies dizziness, Denies loss of vision, Denies numbness and Denies tingling Psychiatric: Psychiatric: Reports no additional psychiatric complaints Endocrine: Endocrine: Reports no additional endocrine complaints Hematologic/Lymphatic: Hematologic/Lymphatic: Reports no additional hematologic/lymphatic complaints Allergic/Immunologic: Allergic/Immunologic: Reports no additional allergic/immunologic complaints PMFSH Past Medical History Attestation statement: The following information was validated with the patient. Source: old records reviewed and nursing notes reviewed Social History Social History Advance Directives: No Advance Directives Information Provided: Yes Physical Exam ED Vital Signs: Vital Signs - 24 hr 01/28/25 08:52 Temperature 98.6 F Pulse Rate 68 Respiratory Rate 16 Blood Pressure 106/63 Pulse Oximetry 97 Oxygen Delivery Method Room Air BMI result Body Mass Index 32.2 Const General: cooperative, no acute distress, alert and awake Nutritional Appearance: well nourished Orientation/consciousness: patient oriented x3 HENMT Head: Yes normal to inspection and Yes atraumatic Ears: hearing grossly normal bilaterally and external ears normal General nose exam: Normal external nose present, no nasal discharge noted and no epistaxis Face and sinus: Yes normal facial exam, No abrasion and No laceration Mouth: Normal oral and palatal mucosa present, no drooling and no muffled voice Eyes General: appearance normal, both eyes and all related structures Periorbital: periorbital findings normal Eyelids: Yes eyelids normal Conjunctivae: conjunctivae normal Pupils: Equal, round and reactive pupils present EOM: EOMs intact bilaterally Neck Neck: Yes normal visual inspection, Yes full ROM and Yes no lymphadenopathy Resp Effort & Inspection: normal respiratory effort and able to speak in complete sentences Neuro General: patient oriented x3, moves all extremities and CN's II-XI intact bilaterally Cranial nerves: Yes Equal, round and reactive pupils present Cognition (Neuro): normal cognition Extrem General: Yes normal to inspection, Yes full ROM and Yes capillary refill normal Psych Appearance: grossly normal Mental Status: mental status grossly normal Affect: normal affect Attitude: cooperative Thought process: Normal thought process present Thought content: Normal thought content present Insight: Good insight present (Psych) Medical Decision Making Medical Decision Making MDM Narrative: Patient is a 29 year old assigned female at with no reported medical history presenting to the emergency department today with left knee pain. Patient's physical exam was unremarkable. Patient's left knee x-ray showed evidence of arthritis but was otherwise unremarkable. I explained my physical exam findings as well as all test results to the patient. I answered all questions asked by the patient. I recommended the patient get a better fitting knee sleeve over the counter and follow up with her primary care provider for a physical therapy referral. I stressed the importance of the patient taking her medication as directed (either prescribed or as the over the counter packaging recommends). I stressed the importance of the patient following up with her primary care provider. I stressed the importance of the patient returning to the emergency department immediately if her symptoms were to worsen or if she were to develop any dizziness, shortness of breath, difficulty breathing, chest pain, blurry vision, loss of vision, nausea, vomiting, abdominal pain, fever, chills, back pain, or any other complaints. Patient verbalized agreement and understanding with this treatment plan and discharge. Differential Diagnosis Differential Diagnoses: The differential diagnosis associated with the presentation includes Left knee OA Left knee pain Left knee instability Admission/Observation Consideration of admission/observation: Escalation of care including admission/observation considered Patient would have been admitted to the hospital had her work up had any findings where hospital admission was appropriate and her clinical presentation warranted hospital admission. Independent Interpretation I performed an independent interpretation of an: Plain X-Ray Interpretation: My interpretation is in agreement with the radiologist's impression of this imaging study. EXAMINATION: XR KNEE, LEFT CLINICAL INFORMATION: pain COMPARISON: None available. TECHNIQUE: AP oblique and lateral views, of the left knee. FINDINGS: No acute cortical disruption or malalignment. No suprapatellar bursa joint effusion. Mild joint space narrowing involving the medial compartment. No lytic or blastic lesions. No subcutaneous emphysema. No metallic or radiopaque foreign body. XR/XR knee LT 4V IMPRESSION: Mild medial compartment osteoarthrosis without acute fracture or dislocation. Electronically signed by: Rodrigo Carson MD 01/28/2025 09:11 AM EDT RP Dictated By: Rodrigo Luna MD Signed By: Electronically signed by Rodrigo Ordaz MD 01/28/25 0911 Radiology Impression Discussion of test interpretation with radiology: I have reviewed the radiologist's reading. Discharge Plan Discharge Clinical Impression: Acute knee pain Patient Disposition: Home, Self-Care Instructions: Knee Pain (ED) Additional Instructions: Follow up with your primary care provider. Return to the emergency department immediately if your symptoms worsen or if you develop any numbness, tingling, dizziness, shortness of breath, difficulty breathing, chest pain, blurry vision, loss of vision, nausea, vomiting, abdominal pain, fever, chills, back pain, or any other complaints. Please see the information below about our Patient Portal. If you are not yet enrolled in the [facility] Patient Portal, you will receive an enrollment email invitation following your visit to any [facility] setting. You may also self-enroll in the Patient Portal by visiting our website: [email or web address] The following information is required to access the Patient Portal: - Your [facility] Medical Record Number - Your personal home email address (must match what is in your electronic medical record, Registration staff can assist with this) - Name - Date of Capabilities of the Patient Portal: - Message some providers - View upcoming appointments - Access your health summary, medical history, and visit history - View current conditions and allergies - View procedure and lab results - View your medications, including guidelines, side effects, and precautions - Complete pre-appointment questionnaires requested by your provider - Ready summary reports of your office visits and procedures To access the Patient Portal Mobile [employer], follow these directions: - Search [employer] in the [employer] Store or [employer] Store - Download the Kim - Search for [facility] - Enter your login/password Prescriptions: No Action omeprazole magnesium [Prilosec OTC] 20 mg tablet,delayed release (DR/EC) 20 mg PO BID 10 Days Qty: 20 0RF doxycycline monohydrate 100 mg tablet 100 mg PO BID Qty: 14 0RF amoxicillin-pot clavulanate 875-125 mg tablet 1 tab PO BID 10 Days Qty: 20 0RF Referrals: [place] [Primary Care Provider, Medical] Stand Alone Forms: Work/School Release Print Language: Armenian
--- NOTE | 2025-01-28 09:49 | PC.NURSE ---
Pt reporting she has been having knee pain for months, she does not recall an injury or trauma, denies previous traumas/injuries. Able to walk fine, no gait changes at this time.
[2025-01-28 10:28] VITALS: BP 106/63; PULSE 68; RESP 16; TEMP 37; O2SAT 97
== END 2025-01-28 10:29 | disposition home or self-care (01) ==
PROVIDERS: Emergency Provider Emergency Medicine
DX: M25.562 Pain in left knee (principal)
CPT/HCPCS: 73564; 99283; 99284